=== PATIENT | female | born 1950 | race Caucasian/White ===

== ENCOUNTER → 2017-09-28 09:29 | Outpatient (CLI) | payer MEDICARE, OTHER, SELFPAY ==
--- NOTE | 2017-09-28 09:33 | RAD_ITS ---
STUDY: X-RAY - ESOPHAGUS (BARIUM SWALLOW) WITH FLUOROSCOPY REASON FOR EXAM: Female, 66 years old. Worsening dysphagia. TECHNIQUE: 22 spot view(s) of the esophagus were obtained following swallowing of barium. FLUOROSCOPY TIME (if supplied): (0:32) minutes/seconds COMPARISON: Comparison is made with prior study dated November 27, 2011. FINDINGS: There is no demonstrated esophageal foreign body. Tertiary contractions are seen in the mid and distal portions of the esophagus. Normal gastroesophageal junction, without a demonstrated hiatal hernia. The patient ingested a 12 mm tablet of barium without any difficulty. Normal visualized aortic arch and descending thoracic aorta. Normal visualized pulmonary parenchyma. There are diffuse degenerative changes of the visualized thoracic spine. RAD/Esophagus Only IMPRESSION: Tertiary contraction of the mid and distal esophagus. There is no evidence of gastroesophageal reflux. Electronically Signed: Mitchel Mehta MD at 10:50 EST Tel [phone], Service support ,
== END ==
PROVIDERS: Family Provider Internal Medicine; PCP Internal Medicine; Visit Provider Otolaryngology Otolaryngology/Facial Plastic Surgery
DX: R13.10 Dysphagia, unspecified (principal)
CPT/HCPCS: 74220

== ENCOUNTER → 2017-10-24 08:38 | Outpatient (CLI) | payer MEDICARE, OTHER, SELFPAY ==
--- NOTE | 2017-10-24 08:40 | HPBI_ITS ---
MAMMOGRAPHY - BILATERAL SCREENING REASON FOR EXAM: Female, 66 years old. Routine annual screening examination. PERTINENT HISTORY: Non-contributory. TECHNIQUE: Digital bilateral breast crystal (3D mammographic acquisition) in the CC and MLO projections. 2-D mediolateral oblique (MLO) and craniocaudad (CC) views of both breasts were obtained. CAD: Full Field Digital Mammography with Computer Added Detection was performed. COMPARISON: Comparison is made with prior outside examination dated May 08, 2016. FINDINGS: Breast Composition: The breasts are heterogeneously dense, which may obscure small masses. There are no dominant masses or suspicious calcifications. Stable bilateral benign appearing axillary lymph nodes. No other significant abnormalities are identified. There has been no significant change since the prior study. HPBI/SCREENING MAMM (CAD), BILAT IMPRESSION: Stable bilateral screening mammogram. Yearly follow-up mammogram recommended. (A) ASSESSMENT CATEGORY: BIRADS Category 2: Benign. A letter regarding these results will be sent to the patient by the facility within 30 days. Approximately 10% of breast cancers are not detected by mammography. A normal mammogram should not delay biopsy of a clinically suspicious abnormality. [id number] Electronically Signed: Mitchel Mehta MD at 10:18 EDT Tel [phone], Service support ,
== END ==
PROVIDERS: Family Provider Internal Medicine; PCP Internal Medicine; Visit Provider Obstetrics & Gynecology
DX: Z12.31 Encounter for screening mammogram for malignant neoplasm of breast (principal)
CPT/HCPCS: 77063; 77067

== ENCOUNTER → 2017-11-13 09:23 | Outpatient (CLI) | payer MEDICARE, OTHER, SELFPAY ==
[2017-11-13 12:26] LABS: Hematocrit 33.9 % (37-47); Hemoglobin 10.7 g/dl (12.0-15.0); Mean Corp Hgb Conc 31.6 g/gl (32-36); Mean Corpuscular Hgb 30.7 pg (27.0-32.0); Mean Corpuscular Volume 97.1 fL (81-99); Mean Platelet Vol. 10.2 fl (6.2-12.0); Platelet Count 245 K/mm3 (150-450); RBC Distribution Width CV 13.5 % (11.6-14.6); RBC Distribution Width SD 46.2 fl (35.1-43.9); Red Blood Count 3.49 M/mm3 (4.2-5.4); White Blood Count 5.8 K/mm3 (4.4-11.0)
[2017-11-13 12:40] LABS: Albumin, Serum 3.8 g/dL (3.2-5.0); BUN 44 mg/dL (7-18); BUN/Creat Ratio 22.1 RATIO (10-20); Calcium,Total 9.2 mg/dL (8.5-10.1); Chloride 109 mmol/L (98-107); Creatinine, Serum 1.99 mg/dL (0.55-1.02); EST Glomerular Filtration Rate 27 mL/min (>60); Est Glom Filt Rate - Afr Amer 32 mL/min (>60); Glucose 156 mg/dL (74-106); Phosphorus 3.8 mg/dL (2.5-4.9); Potassium 4.9 mmol/L (3.5-5.1); Sodium Level 141 mmol/L (136-145)
[2017-11-13 12:46] LABS: Microalbumin,Random Urine 5.3 mg/L (NO RANGE EST.)
[2017-11-13 12:47] LABS: Scan Indicated on CBC? Y/N NO
== END ==
PROVIDERS: Family Provider Internal Medicine; PCP Internal Medicine
DX: N18.3 Chronic kidney disease, stage 3 (moderate) (principal)
CPT/HCPCS: 36415; 80069; 82043; 85027

== ENCOUNTER → 2018-06-13 16:31 | Outpatient (CLI) | payer MEDICARE, OTHER, SELFPAY | PROVIDERS: Family Provider Internal Medicine; PCP Internal Medicine; Referring Provider Urology; Visit Provider Urology | DX: R35.0 Frequency of micturition (principal) | CPT/HCPCS: 87077; 87086; 87088; 87186 ==

== ENCOUNTER → 2018-07-01 09:06 | Outpatient (CLI) | payer MEDICARE, OTHER, SELFPAY ==
[2017-09-26 14:07] VITALS: BMI 43.5
[2018-07-01 12:25] LABS: Absolute Lymphocyte Count 2.03 X10^3/ul (0.83-4.51); Absolute Neutrophil Count 3.9 X10^3/uL (2.0-7.7); Basophil# 0.06 X10^3/uL; Basophil% 0.9 % (0-1); Eosinophil# 0.42 X10^3/uL; Hematocrit 33.1 % (37-47); Hemoglobin 10.4 g/dl (12.0-15.0); Lymphocyte # 2.03 X10^3/ul (4.0); Mean Corp Hgb Conc 31.4 g/gl (32-36); Mean Corpuscular Hgb 29.8 pg (27.0-32.0); Mean Corpuscular Volume 94.8 fL (81-99); Mean Platelet Vol. 10.1 fl (6.2-12.0); Monocyte# 0.55 X10^3/uL; Monocyte% 7.9 % (0-10); Neutrophil # 3.92 X10^3/uL (2.7-7.7); Neutrophil % 56.1 % (47-70); POSITIVE COUNT NO; POSITIVE DIFFERENTIAL NO; POSITIVE MORPHOLOGY NO; Platelet Count 278 K/mm3 (150-450); RBC Distribution Width CV 13.2 % (11.6-14.6); RBC Distribution Width SD 45.5 fl (35.1-43.9); Red Blood Count 3.49 M/mm3 (4.2-5.4)
[2018-07-01 12:29] LABS: Erythrocyte Sedimentation Rate 57 mm/hr (0-30)
[2018-07-01 12:43] LABS: ALB/GLOB Ratio 0.8 RATIO (0.9-2.4); AST(SGOT) 19 U/L (15-37); Alanine Aminotransfer ALT/SGPT 27 U/L (13-56); Albumin, Serum 3.3 g/dL (3.2-5.0); Alkaline Phosphatase 113 U/L (45-117); Anion Gap 13 (5-15); BUN 43 mg/dL (7-18); BUN/Creat Ratio 21.4 RATIO (10-20); Bilirubin, Direct 0.14 mg/dL (0.00-0.30); CRP < 2.90 mg/L (0.0-3.0); Chloride 110 mmol/L (98-107); Cholesterol 154 mg/dL (200); Creatinine, Serum 2.01 mg/dL (0.55-1.02); EST Glomerular Filtration Rate 26 mL/min (>60); Est Glom Filt Rate - Afr Amer 32 mL/min (>60); Glucose 121 mg/dL (74-106); High Density Lipoprotein 43 mg/dL; Potassium 4.4 mmol/L (3.5-5.1); Protein, Total 7.3 g/dL (6.4-8.2); Rheumatoid Factor < 10.0 IU/mL (<15); Sodium Level 143 mmol/L (136-145); Triglycerides 114 mg/dL; Very Low Density Lipoprotein 23 mg/dL (5-40)
[2018-07-03 09:43] LABS: CCP IgG Antibodies 7 units (0-19)
== END ==
PROVIDERS: Family Provider Family Medicine; PCP Family Medicine; Referring Provider Internal Medicine Rheumatology; Visit Provider Internal Medicine Rheumatology
DX: I12.9 Hypertensive chronic kidney disease with stage 1 through stage 4 chronic kidney disease, or unspecified chronic kidney disease (principal); E11.22 Type 2 diabetes mellitus with diabetic chronic kidney disease; N18.3 Chronic kidney disease, stage 3 (moderate); E78.5 Hyperlipidemia, unspecified; M19.041 Primary osteoarthritis, right hand; M19.042 Primary osteoarthritis, left hand
CPT/HCPCS: 36415; 80053; 80061; 82248; 85025; 85652; 86140; 86200; 86431

== ENCOUNTER → 2018-07-10 07:38 | Outpatient (CLI) | payer MEDICARE, OTHER, SELFPAY ==
[2018-07-10 10:19] LABS: Color, Urine Yellow (Yellow); Glucose, Dipstick Normal (Normal); Ketone-Dipstick Negative (Negative); Leukocyte Esterase-Dipstick 25 /ul (Negative); Nitrite-Dipstick Negative (Negative); Occult Blood-Urine Negative /ul (Negative); Protein-Dipstick Negative (Negative); Urine Bilirubin Dipstick Negative (Negative); Urine Clarity Sl. Cloudy (Clear); Urine Urobilinogen Normal (Normal)
[2018-07-10 10:22] LABS: Specific Gravity, Urine 1.015 (1.002-1.030)
== END ==
PROVIDERS: Family Provider Family Medicine; PCP Family Medicine; Referring Provider Urology; Visit Provider Urology
DX: N39.41 Urge incontinence (principal); R35.0 Frequency of micturition
CPT/HCPCS: 81002; 87086; 87088; 87186

== ENCOUNTER → 2018-07-19 14:53 | Outpatient (CLI) | payer MEDICARE, OTHER, SELFPAY ==
[2017-09-26 14:07] VITALS: BMI 43.5
== END ==
PROVIDERS: Family Provider Family Medicine; PCP Family Medicine; Referring Provider Urology; Visit Provider Urology
DX: R35.0 Frequency of micturition (principal)
CPT/HCPCS: 87086; 87088

== ENCOUNTER → 2018-08-01 08:03 | Outpatient (CLI) | payer MEDICARE, OTHER, SELFPAY ==
[2017-09-26 14:07] VITALS: BMI 43.5
--- NOTE | 2018-08-01 08:07 | US_ITS ---
STUDY: RENAL ULTRASOUND - COMPLETE REASON FOR EXAM: Female, 67 years old. Recurrent UTI. TECHNIQUE: Ultrasound evaluation of the kidneys was performed with real-time and static peralta-scale imaging. COMPARISON: May 30, 2016 CT FINDINGS: RIGHT KIDNEY: Normal location of the right kidney, which is normal in size. The right kidney measures 10.1 cm in length. There is a normal cortex of the right kidney. There is no right renal mass or cyst. There are no right renal calculi. There is no right hydronephrosis. DISTAL RIGHT URETER: There is a visualized right ureteral jet. LEFT KIDNEY: Normal location of the left kidney, which is normal in size. The left kidney measures 9.4 cm in length. There is a normal cortex of the left kidney. There is no left renal mass or cyst. There are no left renal calculi. There is no left hydronephrosis. DISTAL LEFT URETER: There is a visualized left ureteral jet. I.V.C.: The IVC is patent. BLADDER: The urinary bladder is incompletely distended and has a volume of 77.04 ml. The empty urinary bladder has a volume of ml. There is a normal wall thickness of the distended urinary bladder. There is no demonstrated mass within the urinary bladder. There are no demonstrated bladder calculi. US/Kidney and Bladder IMPRESSION: Within normal limits ultrasound of the kidneys and urinary bladder. Electronically Signed: Negra Castañeda MD at 20:55 EST Tel , Service support ,
== END ==
PROVIDERS: Family Provider Family Medicine; PCP Family Medicine; Referring Provider Urology; Visit Provider Urology
DX: N39.0 Urinary tract infection, site not specified (principal)
CPT/HCPCS: 76770

== ENCOUNTER → 2018-08-13 09:23 | Outpatient (CLI) | payer MEDICARE, OTHER, SELFPAY ==
[2017-09-26 14:07] VITALS: BMI 43.5
== END ==
PROVIDERS: Family Provider Family Medicine; PCP Family Medicine; Referring Provider Urology; Visit Provider Urology
DX: R30.0 Dysuria (principal)
CPT/HCPCS: 87077; 87086; 87088; 87186

== ENCOUNTER → 2018-08-30 09:16 | Outpatient (CLI) | payer MEDICARE, OTHER, SELFPAY ==
[2017-09-26 14:07] VITALS: BMI 43.5
== END ==
PROVIDERS: Family Provider Family Medicine; PCP Family Medicine; Referring Provider Urology; Visit Provider Urology
DX: R39.15 Urgency of urination (principal); R35.0 Frequency of micturition; R30.0 Dysuria
CPT/HCPCS: 87086; 87088

== ENCOUNTER → 2018-11-28 08:36 | Outpatient (CLI) | payer MEDICARE, OTHER, SELFPAY ==
--- NOTE | 2018-11-28 08:39 | BI_ITS ---
MAMMOGRAPHY - BILATERAL SCREENING 3-D TOMOSYNTHESIS REASON FOR EXAM: Female, 67 years old. Bilateral Screening 3-D tomosynthesis PERTINENT HISTORY: No significant family history. TECHNIQUE: 2-D mammograms and 3-D Tomosynthesis of the breast (s) were performed. CAD was performed. COMPARISON: 10/24/2017 FINDINGS: The breast composition is heterogeneously dense that can obscure small breast masses. Scattered benign calcifications are seen. No dense spiculated masses or suspicious microcalcifications are identified. No architectural distortion is identified. There is no skin thickening or retraction. There has been no significant change since the prior study. BI/SCREEN MAMM (CAD) W/GUY BILAT IMPRESSION: No mammographic signs of malignancy. Routine yearly mammograms recommended. ASSESSMENT CATEGORY: BIRADS Category 1: Negative. A letter regarding these results will be sent to the patient by the facility within 30 days. FOLLOW UP RECOMMENDATION: Yearly follow up mammogram recommended. (A) Approximately 10% of breast cancers are not detected by mammography. A normal mammogram should not delay biopsy of a clinically suspicious abnormality. Electronically Signed: Noah Hooker MD at 9:50 EDT , Service support ,
== END ==
PROVIDERS: Family Provider Family Medicine; PCP Family Medicine; Referring Provider Nurse Practitioner Women's Health; Visit Provider Nurse Practitioner Women's Health
DX: Z12.31 Encounter for screening mammogram for malignant neoplasm of breast (principal)
CPT/HCPCS: 77063; 77067

== ENCOUNTER → 2018-12-16 14:33 | Outpatient (CLI) | payer MEDICARE, OTHER, SELFPAY ==
[2017-09-26 14:07] VITALS: BMI 43.5
[2018-12-16 17:51] LABS: Hemoglobin 11.2 g/dl (12.0-15.0); Mean Corpuscular Hgb 29.9 pg (27.0-32.0); Mean Corpuscular Volume 93.6 fL (81-99); Mean Platelet Vol. 10.7 fl (6.2-12.0); Platelet Count 253 K/mm3 (150-450); RBC Distribution Width CV 13.4 % (11.6-14.6); RBC Distribution Width SD 44.4 fl (35.1-43.9); Red Blood Count 3.74 M/mm3 (4.2-5.4)
[2018-12-16 17:55] LABS: Scan Indicated on CBC? Y/N NO
[2018-12-16 18:03] LABS: Albumin, Serum 3.6 g/dL (3.2-5.0); BUN 47 mg/dL (7-18); BUN/Creat Ratio 21.6 RATIO (10-20); Chloride 110 mmol/L (98-107); Creatinine, Serum 2.18 mg/dL (0.55-1.02); EST Glomerular Filtration Rate 24 mL/min (>60); Est Glom Filt Rate - Afr Amer 29 mL/min (>60); Glucose 171 mg/dL (74-106); Phosphorus 3.8 mg/dL (2.5-4.9); Potassium 4.9 mmol/L (3.5-5.1); Sodium Level 139 mmol/L (136-145)
[2018-12-16 18:11] LABS: PTHIN 84.7 pg/mL (18.4-80.1); Vitamin D,25 Hydroxy 19.2 ng/mL (29.95-100.01)
== END ==
PROVIDERS: Family Provider Family Medicine; PCP Family Medicine
DX: N18.3 Chronic kidney disease, stage 3 (moderate) (principal)
CPT/HCPCS: 36415; 80069; 82306; 83970; 85027

== ENCOUNTER → 2019-03-03 09:31 | Outpatient (CLI) | payer MEDICARE, OTHER, SELFPAY ==
[2019-01-13 08:45] VITALS: BMI 43.5
[2019-03-03 10:44] LABS: Hematocrit 32.9 % (37-47); Hemoglobin 10.3 g/dL (12.0-15.0); Mean Corp Hgb Conc 31.3 g/dL (32-36); Mean Corpuscular Hgb 30.2 pg (27.0-32.0); Mean Corpuscular Volume 96.5 fL (81-99); Mean Platelet Vol. 10.7 fl (6.2-12.0); Platelet Count 231 K/mm3 (150-450); RBC Distribution Width CV 13.2 % (11.6-14.6); RBC Distribution Width SD 47.2 fl (35.1-43.9); Red Blood Count 3.41 M/mm3 (4.2-5.4); White Blood Count 6.2 K/mm3 (4.4-11.0)
[2019-03-03 11:13] LABS: AST(SGOT) 12 U/L (15-37); Alanine Aminotransfer ALT/SGPT 16 U/L (13-56); Albumin, Serum 3.7 g/dL (3.2-5.0); Alkaline Phosphatase 92 U/L (45-117); Anion Gap 8 (5-15); BUN 46 mg/dL (7-18); BUN/Creat Ratio 19.4 RATIO (10-20); Calcium,Total 9.8 mg/dL (8.5-10.1); Chloride 110 mmol/L (98-107); Cholesterol 151 mg/dL (200); Creatinine, Serum 2.37 mg/dL (0.55-1.02); EST Glomerular Filtration Rate 22 mL/min (>60); Est Glom Filt Rate - Afr Amer 26 mL/min (>60); Globulin 3.7 g/dL (2.2-4.2); Glucose 190 mg/dL (74-106); High Density Lipoprotein 49 mg/dL; Magnesium 1.7 mg/dL (1.6-2.6); Phosphorus 3.6 mg/dL (2.5-4.9); Potassium 3.9 mmol/L (3.5-5.1); Protein, Total 7.4 g/dL (6.4-8.2); Sodium Level 139 mmol/L (136-145); Triglycerides 161 mg/dL; Very Low Density Lipoprotein 32 mg/dL (5-40)
[2019-03-03 11:16] LABS: Protein, Urine (Random) 108.3 mg/dL (<11.9); Protein:Creat Ratio 235 mg/g CRE (0-200)
[2019-03-03 19:34] LABS: PTHIN 54.5 pg/mL (18.4-80.1)
[2019-03-03 22:04] LABS: Vitamin D,25 Hydroxy 29.4 ng/mL (29.95-100.01)
== END ==
PROVIDERS: Family Provider Family Medicine; PCP Family Medicine
DX: E11.22 Type 2 diabetes mellitus with diabetic chronic kidney disease (principal); N18.3 Chronic kidney disease, stage 3 (moderate); E78.5 Hyperlipidemia, unspecified; N39.0 Urinary tract infection, site not specified
CPT/HCPCS: 80053; 80061; 82306; 82570; 83735; 83970; 84100; 84156; 85027; 87077; 87086; 87088; 87186

== ENCOUNTER → 2019-03-21 09:25 | Outpatient (CLI) | payer MEDICARE, OTHER, SELFPAY ==
[2019-01-13 08:45] VITALS: BMI 43.5
== END ==
PROVIDERS: Family Provider Family Medicine; PCP Family Medicine; Referring Provider Internal Medicine Nephrology; Visit Provider Internal Medicine Nephrology
DX: N39.0 Urinary tract infection, site not specified (principal)
CPT/HCPCS: 87086; 87088

== ENCOUNTER 2019-04-03 09:25 | Outpatient (RCR) | payer MEDICARE, OTHER, SELFPAY ==
[2019-01-13 08:45] VITALS: BMI 43.5
[2019-04-03 09:40] LABS: Bacteria 0 SEEN /hpf (None Seen); Mucous, Urine 0 SEEN /hpf (<or=2+); Red Blood Cells-Urine 0 SEEN /hpf (0-5); White Blood Cells 0 SEEN /hpf (0-5)
[2019-04-03 12:10] LABS: Color, Urine Yellow (Yellow); Glucose, Dipstick Normal (Normal); Ketone-Dipstick Negative (Negative); Leukocyte Esterase-Dipstick Negative /ul (Negative); Nitrite-Dipstick Negative (Negative); Occult Blood-Urine Negative /ul (Negative); Protein-Dipstick Negative (Negative); Specific Gravity, Urine 1.015 (1.002-1.030); Urine Bilirubin Dipstick Negative (Negative); Urine Clarity Clear (Clear); Urine Urobilinogen Normal (Normal)
[2019-04-03 12:22] LABS: Squamous Epithelial Cells - UA 0-5 SEEN /hpf (5-10)
== END 2019-04-03 10:25 | disposition home or self-care (01) ==
LOC: MTLAB 09:25
PROVIDERS: Family Provider Family Medicine; PCP Family Medicine
DX: N39.0 Urinary tract infection, site not specified (principal)
CPT/HCPCS: 81001; 87086; 87088

== ENCOUNTER 2019-05-07 09:07 | Outpatient (RCR) | payer MEDICARE, OTHER, SELFPAY ==
[2019-01-13 08:45] VITALS: BMI 43.5
[2019-05-07 09:19] LABS: Bacteria 0 SEEN /hpf (None Seen); Mucous, Urine 0 SEEN /hpf (<or=2+); Red Blood Cells-Urine 0 SEEN /hpf (0-5); White Blood Cells 0 SEEN /hpf (0-5)
[2019-05-07 10:16] LABS: Color, Urine Yellow (Yellow); Glucose, Dipstick Normal (Normal); Ketone-Dipstick Negative (Negative); Leukocyte Esterase-Dipstick Negative /ul (Negative); Nitrite-Dipstick Negative (Negative); Occult Blood-Urine Negative /ul (Negative); Protein-Dipstick Negative (Negative); Specific Gravity, Urine 1.015 (1.002-1.030); Urine Bilirubin Dipstick Negative (Negative); Urine Clarity Clear (Clear); Urine Urobilinogen Normal (Normal)
[2019-05-07 10:23] LABS: Squamous Epithelial Cells - UA 0-5 SEEN /hpf (5-10)
== END 2019-05-07 18:00 | disposition home or self-care (01) ==
LOC: MTLAB 09:07
PROVIDERS: Family Provider Family Medicine; PCP Family Medicine
DX: N39.0 Urinary tract infection, site not specified (principal)
CPT/HCPCS: 81001; 87086; 87088

== ENCOUNTER 2019-10-03 09:14 | Outpatient (RCR) | payer MEDICARE, OTHER, SELFPAY ==
[2019-01-13 08:45] VITALS: BMI 43.5
[2019-10-03 09:26] LABS: Mucous, Urine 0 SEEN /hpf (<or=2+); Red Blood Cells-Urine 0 SEEN /hpf (0-5); White Blood Cells 0 SEEN /hpf (0-5)
[2019-10-03 10:17] LABS: Color, Urine Yellow (Yellow); Glucose, Dipstick Normal (Normal); Ketone-Dipstick Negative (Negative); Leukocyte Esterase-Dipstick Negative /ul (Negative); Nitrite-Dipstick Negative (Negative); Occult Blood-Urine Negative /ul (Negative); Protein-Dipstick Negative (Negative); Urine Bilirubin Dipstick Negative (Negative); Urine Clarity Clear (Clear); Urine Urobilinogen Normal (Normal); Urine pH 6.5 (5.0 - 8.0)
[2019-10-03 10:23] LABS: Bacteria RARE /hpf (None Seen); Squamous Epithelial Cells - UA 0-5 SEEN /hpf (5-10)
== END 2019-10-03 18:00 | disposition home or self-care (01) ==
LOC: MTLAB 09:14
PROVIDERS: Family Provider Family Medicine; PCP Family Medicine
DX: N39.0 Urinary tract infection, site not specified (principal)
CPT/HCPCS: 81001; 87086; 87088

== ENCOUNTER → 2020-03-12 12:01 | Outpatient (CLI) | payer MEDICARE, OTHER, SELFPAY ==
[2019-01-13 08:45] VITALS: BMI 43.5
[2020-03-12 15:13] LABS: Erythrocyte Sedimentation Rate 20 mm/hr (0-30)
[2020-03-12 15:14] LABS: Absolute Lymphocyte Count 1.67 X10^3/uL (0.83-4.51); Absolute Neutrophil Count 3.4 X10^3/uL (2.0-7.7); Basophil# 0.05 X10^3/uL; Basophil% 0.9 % (0-1); Eosinophil# 0.17 X10^3/uL; Eosinophils% 2.9 % (0-5); Hematocrit 37.8 % (37-47); Hemoglobin 12.2 g/dL (12.0-15.0); Lymphocyte # 1.67 X10^3/ul (4.0); Lymphocyte % 28.7 % (19-41); Mean Corp Hgb Conc 32.3 g/dL (32-36); Mean Corpuscular Hgb 30.7 pg (27.0-32.0); Mean Corpuscular Volume 95.2 fL (81-99); Mean Platelet Vol. 11.1 fl (6.2-12.0); Monocyte# 0.51 X10^3/uL; Monocyte% 8.8 % (0-10); NRBC Flagged by Analyzer 0 % (0-5); Neutrophil # 3.42 X10^3/uL (2.7-7.7); Neutrophil % 58.7 % (47-70); Platelet Count 264 K/mm3 (150-450); RBC Distribution Width CV 12.7 % (11.6-14.6); RBC Distribution Width SD 44.4 fl (35.1-43.9); Red Blood Count 3.97 M/mm3 (4.2-5.4); White Blood Count 5.8 K/mm3 (4.4-11.0)
[2020-03-12 15:25] LABS: CRP < 2.90 mg/L (0.0-3.0)
== END ==
PROVIDERS: PCP Family Medicine; Referring Provider Ophthalmology; Visit Provider Ophthalmology
DX: M31.6 Other giant cell arteritis (principal)
CPT/HCPCS: 36415; 85025; 85652; 86140

== ENCOUNTER → 2020-03-25 08:41 | Outpatient (CLI) | payer MEDICARE, OTHER, SELFPAY ==
[2019-01-13 08:45] VITALS: BMI 43.5
--- NOTE | 2020-03-25 08:42 | BI_ITS ---
MAMMOGRAPHY - BILATERAL SCREENING 3-D TOMOSYNTHESIS REASON FOR EXAM: Female, 69 years old. Routine screening PERTINENT HISTORY: BILAT SCREENING - NO FAM HX - NO PREV ANCELMO G''S - PT HAS LOST 30#. TECHNIQUE: 2-D mammograms and 3-D Tomosynthesis of the breast (s) were performed. CAD was performed. COMPARISON: 11/28/2018 FINDINGS: The breast composition is heterogeneously dense that can obscure small breast masses. Stable scattered benign punctate calcifications are seen. No dense spiculated masses or suspicious microcalcifications are identified. No architectural distortion is identified. There is no skin thickening or retraction. There has been no significant change since the prior study. BI/SCREEN MAMM (CAD) W/GUY BILAT IMPRESSION: No mammographic signs of malignancy. Routine yearly mammograms recommended. ASSESSMENT CATEGORY: BIRADS Category 2: Benign. A letter regarding these results will be sent to the patient by the facility within 30 days. FOLLOW UP RECOMMENDATION: Yearly follow up mammogram recommended. (A) Approximately 10% of breast cancers are not detected by mammography. A normal mammogram should not delay biopsy of a clinically suspicious abnormality. Electronically Signed: Noah Hooker MD at 12:58 EDT , Service support ,
== END ==
PROVIDERS: PCP Family Medicine; Referring Provider Obstetrics & Gynecology; Visit Provider Obstetrics & Gynecology
DX: Z12.31 Encounter for screening mammogram for malignant neoplasm of breast (principal)
CPT/HCPCS: 77063; 77067

== ENCOUNTER → 2021-04-26 08:34 | Outpatient (CLI) | payer MEDICARE, OTHER, SELFPAY ==
--- NOTE | 2021-04-26 08:04 | CT_ITS ---
STUDY: CT ABDOMEN AND PELVIS WITHOUT CONTRAST REASON FOR EXAM: Female, 70 years old. Umbilical hernia suspected RADIATION DOSAGE (If Supplied By Facility): CTDIvol = ( 20.81 ) mGy, DLP = ( 1003.53 ) mGycm TECHNIQUE: Transaxial images were obtained from the dome of the diaphragm to the symphysis pubis without oral contrast, and without intravenous contrast. Sagittal and coronal images were reconstructed. Individualized dose optimization techniques were used for this CT. COMPARISON: None. FINDINGS: Minimal atelectasis at the left lung base. Coronary artery calcification. Normal liver. There are multiple gallstones. Normal spleen. Normal pancreas. Normal bilateral adrenal glands. Normal right kidney. Normal left kidney. Normal visualized stomach. Normal small intestine. There are scattered colonic diverticula consistent with diverticulosis. The appendix is visualized and appears normal. There is scattered atherosclerotic calcification of the abdominal aorta, without a demonstrated aneurysm. Normal inferior vena cava. Normal retroperitoneum. Normal urinary bladder. Calcified fibroid uterus. There is a small umbilical hernia containing fat. The neck of the hernia measures 1.8 cm. Normal osseous structures. CT/Abdomen/Pel W ORAL Cont Only IMPRESSION: Small umbilical hernia containing fat. The neck of the hernia measures 1.8 cm. Electronically Signed: Mitchel Mehta MD at 10:28 EDT , Service support ,
--- NOTE | 2021-04-26 08:38 | BI_ITS ---
MAMMOGRAPHY - BILATERAL SCREENING REASON FOR EXAM: Female, 70 years old. Routine annual screening examination. PERTINENT HISTORY: Grandmother with breast cancer. TECHNIQUE: Digital bilateral breast guy (3D mammographic acquisition) in the CC and MLO projections. 2-D mediolateral oblique (MLO) and craniocaudad (CC) views of both breasts were obtained. CAD: Full Field Digital Mammography with Computer Added Detection was performed. COMPARISON: Comparison is made with prior study 03/25/2020 and 11/28/2018. FINDINGS: Breast Composition: The breasts are heterogeneously dense, which may obscure small masses. There are no dominant masses or suspicious calcifications. Stable benign-appearing bilateral axillary lymph nodes. Stable secretory calcifications in the breast more prominent on the left side. No other significant abnormalities are identified. There has been no significant change since the prior study. BI/SCRN MAMM (CAD)W/GUY BILAT IMPRESSION: Stable bilateral screening mammogram. Yearly follow-up mammogram recommended. (A) ASSESSMENT CATEGORY: BIRADS Category 2: Benign. A letter regarding these results will be sent to the patient by the facility within 30 days. Approximately 10% of breast cancers are not detected by mammography. A normal mammogram should not delay biopsy of a clinically suspicious abnormality. [id number] Electronically Signed: Mitchel Mehta MD at 9:50 EDT , Service support ,
== END ==
PROVIDERS: PCP Family Medicine; Visit Provider Obstetrics & Gynecology
DX: K42.9 Umbilical hernia without obstruction or gangrene (principal); Z12.31 Encounter for screening mammogram for malignant neoplasm of breast
CPT/HCPCS: 74176; 77063; 77067

== ENCOUNTER → 2021-06-14 08:35 | Outpatient (CLI) | payer MEDICARE, OTHER, SELFPAY ==
--- NOTE | 2021-06-14 09:45 | RAD_ITS ---
STUDY: X-RAY - ESOPHAGUS (BARIUM SWALLOW) WITH FLUOROSCOPY REASON FOR EXAM: Female, 70 years old. DYSPHAGIA TECHNIQUE: 20 view(s) of the esophagus were obtained following swallowing of barium. FLUOROSCOPY TIME (if supplied): (38) minutes/seconds COMPARISON: None. FINDINGS: There is no demonstrated esophageal foreign body. There is no demonstrated stricture or mucosal abnormality. There is narrowing of the distal esophagus at the level of the gastroesophageal junction. The patient ingested a 12 mm tablet of barium. The tablet is trapped at the gastroesophageal junction. There is atherosclerotic calcification of the aortic arch with tortuosity of the descending aorta. Normal visualized pulmonary parenchyma. There are diffuse degenerative changes of the visualized thoracic spine. RAD/Esophagus Dual Contrast IMPRESSION: Narrowing at the level of the gastroesophageal junction with trapping of the 12 mm tablet of barium. Electronically Signed: Mitchel Mehta MD at 11:32 EST , Service support ,
== END ==
PROVIDERS: PCP Family Medicine; Referring Provider Internal Medicine Gastroenterology; Visit Provider Internal Medicine Gastroenterology
DX: R13.10 Dysphagia, unspecified (principal)
CPT/HCPCS: 74221

== ENCOUNTER 2021-09-28 09:34 | Outpatient (CLI) | payer MEDICARE, OTHER, SELFPAY ==
[2021-09-28 10:20] LABS: Hematocrit 29.7 % (37-47); Hemoglobin 9.6 g/dL (12.0-15.0); Mean Corp Hgb Conc 32.3 g/dL (32-36); Mean Corpuscular Hgb 30.4 pg (27.0-32.0); Mean Platelet Vol. 9.8 fl (6.2-12.0); Platelet Count 249 K/mm3 (150-450); RBC Distribution Width CV 13.4 % (11.6-14.6); RBC Distribution Width SD 46.4 fl (35.1-43.9); Red Blood Count 3.16 M/mm3 (4.2-5.4); White Blood Count 6.9 K/mm3 (4.4-11.0)
== END 2021-09-28 23:59 | disposition home or self-care (01) ==
LOC: MTLAB 09:37
PROVIDERS: PCP Family Medicine; Referring Provider Internal Medicine Pulmonary Disease; Visit Provider Internal Medicine Pulmonary Disease
DX: D50.8 Other iron deficiency anemias (principal)
CPT/HCPCS: 36415; 85027

== ENCOUNTER 2021-09-28 23:39 | Emergency (ER) | payer MEDICARE, OTHER, SELFPAY ==
[2021-09-28 23:40] VITALS: BP 160/75; PULSE 92; RESP 15; TEMP 36.5; O2SAT 96; BMI 36.8
--- NOTE | 2021-09-29 00:17 | EDS_ITS ---
HPI HPI - GI History of Present Illness Chief Complaint: Complaint Informant: patient Abdominal Pain/Flank Pain Onset: Today Timing: Continuous Quality: Aching Location: Epigastric Current Severity: Mild Maximum Severity: Mild Worsened by: Nothing Relieved by: Nothing Nausea/Vomiting/Emesis GI Symptom: Negative for Nausea and Vomiting Onset: Today Quality: Negative for Nonbilious Diarrhea/Melena/Hematochezia GI Symptom: Negative for Diarrhea, Melena and Hematochezia Associated Symptoms Associated Symptoms: Positive for Hematuria; Negative for Dysuria and Frequency Narrative Narrative: 70-year-old female prior appendectomy. States that she noticed hematuria today. Denies any dysuria. Denies any fever. States she also has epigastric abdominal pain which she has had before in the past. Has a known history of gallstones but has never had a cholecystectomy. She denies vomiting. She denies diarrhea or melena. She denies any fever. Prior similar symptoms: Yes Recent Illness/Hospitalization: No PFSH PFS Medical History Arthritis Asthma Diabetes type 2, controlled GERD (gastroesophageal reflux disease) History of melanoma Hyperlipemia Hypertension IBS (irritable bowel syndrome) Sleep apnea Home Medications GlipiZIDE PO BID 08/21/17 [History Last Taken Unknown] indapamide 2.5 mg tablet 2.5 mg PO QAM #90 tab 08/21/17 [Rx Last Taken Unknown] Oxybutynin 1 tab PO TID #90 tab 10/02/17 [Rx Last Taken Unknown] lactobacillus combination no.8 3 billion cell capsule 3,000 mmu cells PO DAILY 01/13/19 [History Last Taken Unknown] lisinopril 10 mg tablet 5 mg PO QDAY tab 01/13/19 [History Last Taken Unknown] apremilast 30 mg tablet 30 mg PO QAM AND QPM 04/04/21 [History Last Taken Unknown] atorvastatin 20 mg tablet 20 mg PO DAILY 04/04/21 [History Last Taken Unknown] montelukast 10 mg tablet 10 mg PO DAILY 04/04/21 [History Last Taken Unknown] omeprazole 20 mg capsule,delayed release 20 mg PO DAILY 04/04/21 [History Last Taken Unknown] pioglitazone 15 mg tablet 15 mg PO DAILY 04/04/21 [History Last Taken Unknown] cephalexin 500 mg PO TID 10 Days #30 cap 09/29/21 [Rx Last Taken Unknown] Allergy/AdvReac Type Severity Reaction Status Date / Time adhesive Allergy Rash Verified 09/28/21 23:44 amoxicillin [From Augmentin] Allergy Unknown Verified 09/28/21 23:44 clavulanic acid Allergy Unknown Verified 09/28/21 23:44 [From Augmentin] Penicillins [PCN] Allergy Other Verified 09/28/21 23:44 Sulfa (Sulfonamide Allergy Hives Verified 09/28/21 23:44 Antibiotics) STEROID SHOTS Allergy Other Uncoded 04/04/21 13:20 Family History Mother Diabetes Heart disease Hypertension Father Heart disease Cancer skin Grandfather Myocardial infarction 60s or 70s CVA (cerebral vascular accident) Surgical History H/O arthroscopic knee surgery hand and elbow surgery History of appendectomy History of carpal tunnel release History of cataract Status post left foot surgery Social History Smoking Status: Never smoker alcohol intake: never substance use type: does not use caffeine: Yes what type of physical activity do you participate in: walking frequency: 1-2 times per week seatbelt use: always do you feel safe at home: Yes additional social history: Employed [employer] ROS ROS ED ROS Narrative Abdominal pain epigastric. Mild hematuria. Review of Systems ROS Unobtainable: Denies due to encephalopathy Constitutional Constitutional ED: Denies fever(s) ENT ENT ED: Denies ear pain Cardiovascular Cardiovascular: Denies chest pain or palpitations Respiratory/Chest Respiratory/Chest: Denies cough, dyspnea or sputum Gastrointestinal Gastrointestinal: Reports abdominal pain; Denies constipation, diarrhea, melena, nausea or vomiting Genitourinary Genitourinary ED: Reports hematuria; Denies dysuria Musculoskeletal Musculoskeletal: Denies myalgias Integumentary Denies rash Neurologic Neurologic: Denies headache(s) Psychiatric Psychiatric: Denies depression Endocrine Endocrinology: Denies polyuria Hematologic/Lymphatic Hematologic/Lymphatic: Denies easy bruising Allergic/Immunologic Allergic/Immunologic ED: Denies urticaria EXAM Physical Exam Narrative Exam Narrative: 70-year-old female no acute distress. Vital signs are stable and afebrile. H EENT exam unremarkable. Neck nontender. Lungs clear to auscultation bilaterally. Heart regular rhythm rate about 90 no murmur. Abdomen soft nondistended normal bowel sounds no peritoneal signs. Mild epigastric tenderness. No rebound, guarding rigidity. No pulsatile mass. No right upper or right lower quadrant tenderness. No hernia. No obstruction. Moving all 4 extremities. Nontender no edema. Neurologically she is awake alert with no focal motor deficits. Const Vital Signs: 09/28/21 23:40 09/29/21 01:48 Temperature 97.7 F L 97.7 F L Temperature Source Temporal Oral Pulse Rate 92 86 Respiratory Rate 15 16 Blood Pressure 160/75 H 144/68 H Blood Pressure Mean 103 93 Pulse Ox 96 99 Oxygen Delivery Method Room Air Room Air Positive well nourished, well developed and obese; Negative for cachectic, contractures or unkempt General Appearance ED: well developed and NAD; Negative for unkempt, cachectic, contractures or pallor Nutritional Appearance: obese; Negative for cachectic HEENT Reports moist mucous membranes; Denies dry mucous membranes normocephalic and atraumatic; Negative for trauma or tenderness Mouth ED: No dry mucous membranes Mouth: No dry mucous membranes Eyes PERRL and EOMs intact bilaterally Neck no lymphadenopathy, supple and no JVD General: Negative for tenderness Resp normal respiratory effort and clear to auscultation bilaterally Auscultation: Negative for rales, rhonchi or wheezes Cardio regular rate, regular rhythm, S1 normal heart sound, S2 normal heart sound and no murmurs GI non-distended and no masses; Negative for non-tender Inspection: Negative for abdominal distention Auscultation: normoactive bowel sounds; Negative for hypoactive bowel sounds Palpation: soft and tender; Negative for guarding, rigid or rebound tenderness present Back/Spine no CVA tenderness General Back: Negative for CVA tenderness Cervical Spine: Negative for cervical spine tenderness Thoracic Spine / Upper Back: Negative for thoracic spinal tenderness Extremity full ROM General Extremety ED: Negative for edema or tenderness General Extremity: Negative for edema Neuro CN's II-XII intact bilaterally and moves all extremities Sensorium / Orientation: alert, oriented to person, oriented to place and oriented to time; Negative for orientation impaired, confused, lethargic or stuporous Motor Exam: strength 5/5 throughout Psych mental status grossly normal and thought process normal Appearance: Negative for unkempt Attitude: No agitated Mood & Affect: anxious; Negative for depressed or tearful Skin no wounds General Skin Exam: Negative for jaundice or pallor Lesions: no lesions Rashes: no rashes and No rashes noted MDM MDM MDM Narrative Medical decision making narrative: 70-year-old with small amount of blood in her urine. And epigastric abdominal pain. Screening labs will be obtained. She h ad blood work earlier today showed a mild anemia with a hemoglobin of 9.6 her hemoglobin normally runs between 10 and 12. She had no other labs done. Urinalysis also be obtained. She will be treated with Protonix p.o. and a GI cocktail. She had a CAT scan earlier this year which are read view the reading. Repeat exam patient is doing well at 2:15 AM. Abdomen is benign. She had I went over all of her test results. Clinically she is feeling improved. Urine culture will be sent. She will be started on Keflex and follow-up with her primary care physician Dr. Guthrie. Lab Data Attestation: I reviewed the patient's lab results. Lab results narrative: CBC shows a normal white count 8. H&H 9.6 and 29 and the patient's hemoglobin normally runs between 10 and 12. Electrolytes show a gap of 6 a BUN of 31 and a creatinine of 2.17. This is consistent with her chronic renal insufficiency. Liver enzymes are unremarkable alk phos is 123. Lipase is normal at 193. Urinalysis is consistent with a urinary tract infection with 5-10 red cells, 10- 25 white cells and 3+ bacteria. No nitrates. A urine culture will be sent. Patient also had a CAT scan in June which showed umbilical hernia and gallstones. I reviewed the reading of that test. Labs: Laboratory Results - last 24 hr 09/29/21 09/29/21 09/29/21 00:00 00:40 00:40 WBC 8.3 RBC 3.19 L Hgb 9.6 L Hct 29.0 L MCV 90.9 MCH 30.1 MCHC 33.1 RDW Std Deviation 44.5 H RDW Coeff of Delgado 13.3 Plt Count 251 MPV 9.7 Immature Gran % (Auto) 0.200 Neut % (Auto) 48.4 Lymph % (Auto) 36.8 Fergus % (Auto) 8.2 Eos % (Auto) 5.7 H Baso % (Auto) 0.7 Absolute Neuts (auto) 4.0 Absolute Lymphs (auto) 3.04 Nucleated RBC % 0 Sodium 138 Potassium 4.3 Chloride 107 Carbon Dioxide 25.0 Anion Gap 6 BUN 31 H Creatinine 2.17 H Estim Creat Clear Calc 17.94 Est GFR (MDRD) Af Amer 29 L Est GFR (MDRD) Non-Af 24 L BUN/Creatinine Ratio 14.3 Glucose 108 H Calcium 9.2 Total Bilirubin 0.40 AST 12 L ALT 12 L Alkaline Phosphatase 123 H Total Protein 7.0 Albumin 3.3 Globulin 3.7 Albumin/Globulin Ratio 0.9 Lipase 193 Urine Color Yellow Urine Clarity Sl Cloudy Urine pH 6.5 Ur Specific Bethany 1.010 Urine Protein 15 H Urine Glucose (UA) Normal Urine Ketones Negative Urine Occult Blood 250 H Urine Nitrite Negative Urine Bilirubin Negative Urine Urobilinogen Normal Ur Leukocyte Esterase 500 H Urine RBC 5-10 SEEN Urine WBC 10-25 SEEN Ur Squamous Epith Cells 0-5 SEEN Urine Bacteria 3+ Urine Mucus 0 SEEN Discharge Plan Triage Chief Complaint: Complaint ED Provider: Braydon Arteaga Dx/Rx/DC Orders Clinical Impression: Urinary tract infection, Abdominal pain, History of diabetes mellitus, History of renal insufficiency Instructions: ED CYSTITIS Female Adult Prescriptions: New cephalexin 500 mg capsule 500 mg PO TID 10 Days Qty: 30 RF: 0 No Action indapamide 2.5 mg tablet 2.5 mg PO QAM Qty: 90 RF: 3 lisinopril 10 mg tablet 5 mg PO QDAY RF: 0 Adult Probiotic 3 billion cell capsule 3,000 mmu cells PO DAILY RF: 0 atorvastatin [Lipitor] 20 mg tablet 20 mg PO DAILY RF: 0 Otezla 30 mg tablet 30 mg PO QAM AND QPM RF: 0 omeprazole 20 mg capsule,delayed release(DR/EC) 20 mg PO DAILY RF: 0 montelukast [Singulair] 10 mg tablet 10 mg PO DAILY RF: 0 pioglitazone 15 mg tablet 15 mg PO DAILY RF: 0 GlipiZIDE 5 mg PO BID RF: 0 Oxybutynin 5 mg 1 tab PO TID Qty: 90 RF: 0 Primary Care Provider: Johanna Guthrie Referrals: Johanna Guthrie MD [Primary Care Provider] - 3-5 Days Activity Restrictions/Additional Instructions: Plenty of fluids and rest. Cranberry juice. Your labs look good. You have a chronic anemia and chronic renal insufficiency those are your baseline. Urine was consistent with a urinary tract infection. We sent a urine culture there is results should be back in 48 hours. Your primary care physician can check the urine culture results with the antibiotic that I started you on which is Keflex. Follow-up with your doctor in the next several days. Return if feeling worse. Disposition Disposition: Home, Self Care
[2021-09-29] MEDS: Pantoprazole Sodium 40 MG Tablet PO (00:31)
[2021-09-29] MEDS: Mag Hydrox/Al Hydrox/Simeth 30 ML UDC PO (00:31)
[2021-09-29 00:46] LABS: Mucous, Urine 0 SEEN /hpf (<or=2+)
[2021-09-29 00:48] LABS: Absolute Lymphocyte Count 3.04 X10^3/uL (0.83-4.51); Basophil# 0.06 X10^3/uL; Basophil% 0.7 % (0-1); Eosinophil# 0.47 X10^3/uL; Eosinophils% 5.7 % (0-5); Hemoglobin 9.6 g/dL (12.0-15.0); Lymphocyte # 3.04 X10^3/ul (0.83-4.51); Lymphocyte % 36.8 % (19-41); Mean Corp Hgb Conc 33.1 g/dL (32-36); Mean Corpuscular Hgb 30.1 pg (27.0-32.0); Mean Corpuscular Volume 90.9 fL (81-99); Mean Platelet Vol. 9.7 fl (6.2-12.0); Monocyte# 0.68 X10^3/uL; Monocyte% 8.2 % (0-10); NRBC Flagged by Analyzer 0 % (0-5); Neutrophil # 3.99 X10^3/uL (2.7-7.7); Neutrophil % 48.4 % (47-70); Platelet Count 251 K/mm3 (150-450); RBC Distribution Width CV 13.3 % (11.6-14.6); RBC Distribution Width SD 44.5 fl (35.1-43.9); Red Blood Count 3.19 M/mm3 (4.2-5.4); White Blood Count 8.3 K/mm3 (4.4-11.0)
[2021-09-29 01:04] LABS: Glucose, Dipstick Normal (Normal); Ketone-Dipstick Negative (Negative); Leukocyte Esterase-Dipstick 500 /ul (Negative); Nitrite-Dipstick Negative (Negative); Occult Blood-Urine 250 /ul (Negative); Protein-Dipstick 15 mg/dl (Negative); Urine Bilirubin Dipstick Negative (Negative); Urine Urobilinogen Normal (Normal); Urine pH 6.5 (5.0 - 8.0)
[2021-09-29 01:07] LABS: Color, Urine Yellow (Yellow); Urine Clarity Sl Cloudy (Clear)
[2021-09-29 01:10] LABS: Bacteria 3+ /hpf (None Seen); Red Blood Cells-Urine 5-10 SEEN /hpf (0-5); White Blood Cells 10-25 SEEN /hpf (0-5)
[2021-09-29 01:11] LABS: Squamous Epithelial Cells - UA 0-5 SEEN /hpf (5-10)
[2021-09-29 01:17] LABS: ALB/GLOB Ratio 0.9 RATIO (0.9-2.4); AST(SGOT) 12 U/L (15-37); Alanine Aminotransfer ALT/SGPT 12 U/L (13-56); Albumin, Serum 3.3 g/dL (3.2-5.0); Alkaline Phosphatase 123 U/L (45-117); Anion Gap 6 (5-15); BUN 31 mg/dL (7-18); BUN/Creat Ratio 14.3 RATIO (10-20); Calcium,Total 9.2 mg/dL (8.5-10.1); Chloride 107 mmol/L (98-107); Creatinine, Serum 2.17 mg/dL (0.55-1.02); EST Glomerular Filtration Rate 24 mL/min (>60); Est Glom Filt Rate - Afr Amer 29 mL/min (>60); Estimated Creatinine Clearance 17.94 ml/min; Globulin 3.7 g/dL (2.2-4.2); Glucose 108 mg/dL (74-106); Lipase 193 U/L (73-393); Potassium 4.3 mmol/L (3.5-5.1); Sodium Level 138 mmol/L (136-145)
[2021-09-29 01:48] VITALS: BP 144/68; PULSE 86; RESP 16; TEMP 36.5; O2SAT 99
[2021-09-29 02:23] VITALS: BP 144/64; PULSE 68; RESP 16; TEMP 36.5
[2021-09-29] MEDS: Cephalexin 250 MG Capsule 500 MG PO (02:29)
== END 2021-09-29 02:32 | disposition home or self-care (01) ==
PROVIDERS: Emergency Provider Emergency Medicine; PCP Family Medicine; Visit Provider Emergency Medicine
DX: N39.0 Urinary tract infection, site not specified (principal); E11.22 Type 2 diabetes mellitus with diabetic chronic kidney disease; D63.1 Anemia in chronic kidney disease; E78.5 Hyperlipidemia, unspecified; I12.9 Hypertensive chronic kidney disease with stage 1 through stage 4 chronic kidney disease, or unspecified chronic kidney disease; N18.9 Chronic kidney disease, unspecified; K21.9 Gastro-esophageal reflux disease without esophagitis; M19.90 Unspecified osteoarthritis, unspecified site; E66.9 Obesity, unspecified; Z68.36 Body mass index [BMI] 36.0-36.9, adult; Z79.84 Long term (current) use of oral hypoglycemic drugs; Z79.899 Other long term (current) drug therapy
CPT/HCPCS: 36415; 80053; 81001; 83690; 85025; 85027; 87086; 87088; 87186; 99284

== ENCOUNTER 2021-11-03 16:03 | Outpatient (CLI) | payer MEDICARE, OTHER, SELFPAY ==
[2021-11-11 13:50] LABS: HPV Reflexed? NOT INDICATED
== END 2021-11-03 23:59 | disposition home or self-care (01) ==
LOC: LABSPEC 16:06
PROVIDERS: PCP Family Medicine; Visit Provider Obstetrics & Gynecology
DX: N95.0 Postmenopausal bleeding (principal); Z12.4 Encounter for screening for malignant neoplasm of cervix
CPT/HCPCS: 88175; G0145

== ENCOUNTER 2021-11-10 12:11 | Outpatient (CLI) | payer MEDICARE, OTHER, SELFPAY ==
--- NOTE | 2021-11-10 12:14 | US_ITS ---
STUDY: ULTRASOUND OF THE FEMALE PELVIS - COMPLETE REASON FOR EXAM: Female, 70 years old. PMB LMP: Patient is postmenopausal. TECHNIQUE: Transabdominal and Transvaginal TECHNICAL QUALITY: Adequate. COMPARISON: None. FINDINGS: The uterus is anteverted and is in a midline position. The uterus measures 4.5 cm x 3.1 cm x 1.7 cm. Normal uterine cervix. The endometrium is thickened and measures 2.2 mm in thickness, and is fluid distended. There is no demonstrated endometrial mass. There is a 5 mm x 9 mm x 4 mm fibroid in the body of the uterus. I.U.D. - The patient does not have an I.U.D. The right ovary is non-visualized. The left ovary is non-visualized. There is no fluid in the cul-de-sac. The pre void volume of the bladder was 216 ml. The post void volume of the bladder was ml. US/Transvaginal Non- IMPRESSION: 5 mm x 9 mm x 4 mm fibroid in the body of the uterus. The endometrium measures 2.2 mm. Electronically Signed: Mitchel Mehta MD at 14:05 EDT ,
--- NOTE | 2021-11-10 12:14 | US_ITS ---
STUDY: ULTRASOUND OF THE FEMALE PELVIS - COMPLETE REASON FOR EXAM: Female, 70 years old. PMB LMP: Patient is postmenopausal. TECHNIQUE: Transabdominal and Transvaginal TECHNICAL QUALITY: Adequate. COMPARISON: None. FINDINGS: The uterus is anteverted and is in a midline position. The uterus measures 4.5 cm x 3.1 cm x 1.7 cm. Normal uterine cervix. The endometrium is thickened and measures 2.2 mm in thickness, and is fluid distended. There is no demonstrated endometrial mass. There is a 5 mm x 9 mm x 4 mm fibroid in the body of the uterus. I.U.D. - The patient does not have an I.U.D. The right ovary is non-visualized. The left ovary is non-visualized. There is no fluid in the cul-de-sac. The pre void volume of the bladder was 216 ml. The post void volume of the bladder was ml. US/Pelvic (Non ) IMPRESSION: 5 mm x 9 mm x 4 mm fibroid in the body of the uterus. The endometrium measures 2.2 mm. Electronically Signed: Mitchel Mehta MD at 14:05 EDT ,
== END 2021-11-10 23:59 | disposition home or self-care (01) ==
LOC: US 12:11
PROVIDERS: PCP Family Medicine; Referring Provider Obstetrics & Gynecology; Visit Provider Obstetrics & Gynecology
DX: N95.0 Postmenopausal bleeding (principal)
CPT/HCPCS: 76830; 76856

== ENCOUNTER → 2021-12-23 | Outpatient (CLI) | payer MEDICARE, OTHER, SELFPAY ==
--- NOTE | 2021-12-23 08:54 | ECHOCS_ITS ---
Reason For Study: DYSPNEA Procedure This was a 2D Doppler, Color Flow transthoracic echocardiogram. Exam performed in department. Left Ventricle The estimated ejection fraction is 65 %. No evidence for diastolic dysfunction. No regional wall motion abnormalities noted. Right Ventricle Normal RV size. Normal systolic function. Atria Normal left atrium. Normal right atrium. No doppler evidence for ASD. Mitral Valve There is no mitral valve stenosis. No mitral valve insufficiency. Tricuspid Valve There is no tricuspid stenosis. Trivial tricuspid valve insufficiency. Pulmonary artery systolic pressure is 45 mmHg. Aortic Valve There is no aortic stenosis. No aortic valve insufficiency. Pulmonic Valve There is no pulmonic valvular stenosis. No pulmonic valve insufficiency. Great Vessels Normal aortic root. Pericardium/Pleural No pericardial effusion. MMode/2D Measurements & Calculations LVIDd: 4.7 cm IVSd: 0.93 cm Ao root diam: 2.7 cm LVIDs: 2.2 cm LVPWd: 0.97 cm RVDd: 4.6 cm FS: 52.5 % LAV(MOD-bp): 52.2 ml LVAd ap4: 39.2 cm2 SV(MOD-sp4): 90.3 ml LAV(MOD-bp) Indexed: 27.6 ml/m2 LVLd ap4: 8.9 cm LAV(MOD-sp2): 52.8 ml EDV(MOD-sp4): 139.6 ml LAV(MOD-sp4): 49.8 ml EDV(sp4-el): 147.1 ml LVAs ap4: 21.0 cm2 LVLs ap4: 7.4 cm ESV(MOD-sp4): 49.3 ml ESV(sp4-el): 50.4 ml EF(MOD-sp4): 64.7 % EF(sp4-el): 65.7 % SV(sp4-el): 96.7 ml LA A4 area: 18.9 cm2 LA dimension(2D): 4.9 cm RA A4 area: 17.5 cm2 Doppler Measurements & Calculations MV E max drew: 117.0 cm/sec Lat Peak E' Drew: 6.1 cm/sec Med Peak E' Drew: 8.1 cm/sec MV A max drew: 135.3 cm/sec E/E' lat: 19.3 E/E' med: 14.4 MV E/A: 0.86 Ao V2 max: 151.5 cm/sec LV V1 max: 107.6 cm/sec PA V2 max: 117.7 cm/sec Ao max P.2 mmHg LV V1 max P.6 mmHg TR max drew: 315.0 cm/sec TR max P.7 mmHg ECHO/Echo Complete W/ Contrast Interpretation Summary The estimated ejection fraction is 65 %. No evidence for diastolic dysfunction. Ordering Physician: Cody Rivero Referring Physician: Cody Rivero V Performed By: Rosalia Nettles RCS
== END | disposition home or self-care (01) ==
LOC: CVS 08:50
PROVIDERS: PCP Family Medicine; Referring Provider Internal Medicine Pulmonary Disease; Visit Provider Internal Medicine Pulmonary Disease
DX: R06.00 Dyspnea, unspecified (principal)
CPT/HCPCS: 93306; Q9957; A4216; C8929

== ENCOUNTER 2022-03-20 16:00 | Emergency (ER) | payer MEDICARE, OTHER, SELFPAY ==
[2022-03-20 16:01] VITALS: BP 157/70; PULSE 101; RESP 18; TEMP 36.6; O2SAT 96; BMI 38.1
--- NOTE | 2022-03-20 16:16 | EX.ED.DYSGE1 ---
HPI History of Present Illness Chief Complaint: Other, Pain/Inj Detail of Chief Complaint: Neck pain Informant: patient Onset/Context/Timing Onset: Days (5 days) Context: Gradual Onset Current Severity: Moderate Maximum Severity: Moderate Narrative Narrative: Patient presents from urgent care secondary to neck pain. She states that on , 4 days ago, she developed left-sided neck pain that wrapped around the back of her neck and is now over to the right side as well. She thought she just slept wrong. Pain has persisted and continues to worsen. She is not taking anything for pain. She went to urgent care today and her tympanic temperature was 100.4. They did a COVID PCR test and sent her to the emergency room due to concern for discitis or meningitis. She denies fever or chills at home. She does not feel ill. She does not have a headache. [facility] Medical History Arthritis Asthma Diabetes type 2, controlled GERD (gastroesophageal reflux disease) History of melanoma Hyperlipemia Hypertension IBS (irritable bowel syndrome) Sleep apnea Home Medications GlipiZIDE PO BID 08/21/17 [History Last Taken Unknown] indapamide 2.5 mg tablet 2.5 mg PO QAM #90 tabs 08/21/17 [Rx Last Taken Unknown] Oxybutynin 1 tab PO TID #90 tabs 10/02/17 [Rx Last Taken Unknown] lactobacillus combination no.8 3 billion cell capsule (Adult Probiotic) 3,000 mmu cells PO DAILY 01/13/19 [History Last Taken Unknown] lisinopril 10 mg tablet 5 mg PO QDAY 01/13/19 [History Last Taken Unknown] apremilast 30 mg tablet (Otezla) 30 mg PO QAM AND QPM 04/04/21 [History Last Taken Unknown] atorvastatin 20 mg tablet (Lipitor) 20 mg PO DAILY 04/04/21 [History Last Taken Unknown] montelukast 10 mg tablet (Singulair) 10 mg PO DAILY 04/04/21 [History Last Taken Unknown] omeprazole 20 mg capsule,delayed release 20 mg PO DAILY 04/04/21 [History Last Taken Unknown] pioglitazone 15 mg tablet 15 mg PO DAILY 04/04/21 [History Last Taken Unknown] cephalexin 500 mg capsule 500 mg PO TID 10 days #30 caps 02/24/22 [Rx Last Taken Unknown] cyclobenzaprine 10 mg tablet 10 mg PO BID PRN muscle spasm #10 tabs 03/20/22 [Rx Last Taken Unknown] hydrocodone-acetaminophen 5-325mg 5mg-325mg 1 tab PO Q6H PRN pain 3 days #10 tabs 03/20/22 [Rx Last Taken Unknown] lidocaine 5 % topical patch (Lidoderm) 1 patch topical DAILY #15 ea 03/20/22 [Rx Last Taken Unknown] Allergy/AdvReac Type Severity Reaction Status Date / Time adhesive Allergy Rash Verified 03/20/22 16:03 amoxicillin [From Augmentin] Allergy Unknown Verified 03/20/22 16:03 clavulanic acid Allergy Unknown Verified 03/20/22 16:03 [From Augmentin] Penicillins [PCN] Allergy Other Verified 03/20/22 16:03 Sulfa (Sulfonamide Allergy Hives Verified 03/20/22 16:03 Antibiotics) STEROID SHOTS Allergy Other Uncoded 03/20/22 16:03 Family History Mother Diabetes Heart disease Hypertension Father Heart disease Cancer skin Grandfather Myocardial infarction 60s or 70s CVA (cerebral vascular accident) Surgical History H/O arthroscopic knee surgery hand and elbow surgery History of appendectomy History of carpal tunnel release History of cataract Status post left foot surgery Social History Smoking Status: Never smoker alcohol intake: never substance use type: does not use caffeine: Yes what type of physical activity do you participate in: walking frequency: 1-2 times per week seatbelt use: always do you feel safe at home: Yes additional social history: Employed [employer] ROS ROS ED Constitutional Constitutional ED: Denies chills or fever(s) Eyes Eyes: Denies change in vision or discharge from eye(s) ENT ENT ED: Denies discharge from eye(s), rhinorrhea or sore throat Cardiovascular Cardiovascular: Denies chest pain or palpitations Respiratory/Chest Respiratory/Chest: Denies cough or dyspnea Gastrointestinal Gastrointestinal: Denies abdominal pain, diarrhea, nausea or vomiting Genitourinary Genitourinary ED: Denies difficulty urinating or dysuria Musculoskeletal Musculoskeletal: Reports neck pain; Denies back pain or extremity pain Integumentary Denies Abrasions or rash Neurologic Neurologic: Denies headache(s) or weakness Psychiatric Psychiatric: Denies anxiety or depression Endocrine Endocrinology: Denies polydipsia or polyuria Allergic/Immunologic Allergic/Immunologic ED: Denies lip swelling or urticaria EXAM Physical Exam Const Vital Signs: 03/20/22 16:01 Temperature 97.8 F Temperature Source Temporal Pulse Rate 101 H Respiratory Rate 18 Blood Pressure 157/70 H Blood Pressure Mean 99 Pulse Ox 96 Oxygen Delivery Method Room Air Positive well nourished and well developed General Appearance ED: well developed HEENT Reports moist mucous membranes Eyes PERRL and EOMs intact bilaterally Neck no lymphadenopathy Neck Narrative: Reproducible musculoskeletal tenderness throughout the cervical region. Chest Wall inspection of chest normal and palpation of chest normal Resp normal respiratory effort and clear to auscultation bilaterally Cardio regular rate and regular rhythm GI non-tender Palpation: soft Extremity normal to inspection Neuro oriented x3 and no sensory deficits noted Motor Exam: strength 5/5 throughout Psych mental status grossly normal Skin no rashes or lesions noted MDM MDM MDM Narrative Medical decision making narrative: Oral temperature obtained at time of my exam is 97.8. Lab work obtained. Patient ordered a small dose of fentanyl along with Flexeril. I was notified later that patient had refused fentanyl. Lab Data Labs: Laboratory Results - last 24 hr 03/20/22 03/20/22 16:40 16:40 WBC 8.6 RBC 3.55 L Hgb 10.7 L Hct 33.0 L MCV 93.0 MCH 30.1 MCHC 32.4 RDW Std Deviation 43.3 RDW Coeff of Delgado 12.7 Plt Count 270 MPV 9.4 Immature Gran % (Auto) 0.200 Neut % (Auto) 61.0 Lymph % (Auto) 24.3 [place] % (Auto) 8.9 Eos % (Auto) 4.9 Baso % (Auto) 0.7 Absolute Neuts (auto) 5.3 Absolute Lymphs (auto) 2.10 Nucleated RBC % 0 ESR 54 H Sodium 136 Potassium 5.0 Chloride 105 Carbon Dioxide 24.0 Anion Gap 7 BUN 31 H Creatinine 2.03 H Estim Creat Clear Calc 18.90 Est GFR (MDRD) Af Amer 31 L Est GFR (MDRD) Non-Af 26 L BUN/Creatinine Ratio 15.3 Glucose 168 H Calcium 9.1 C-React Prot Ext Range 9.33 H Treatment and Re-Evaluation Narrative: Repeat evaluation patient resting comfortably. White count is normal. No left shift. Sed rate slightly elevated at 54 and CRP is 9.3. Chemistry studies unremarkable other than her chronic renal failure at baseline. Patient does have slight improvement in her pain. In my clinical opinion this is not an infectious etiology. She developed muscle pain in the left anterior lateral neck first that spread around her neck. She has not had a fever at home. Patient will be treated with Flexeril, Lidoderm patch, [place] to help her sleep at night. She can also use Tylenol during the day at home. Discharge Plan Triage Chief Complaint: Other, Pain/Inj ED Provider: Lisset Douglas Dx/Rx/DC Orders Clinical Impression: Musculoskeletal neck pain Instructions: ED Neck Spasm, No Trauma Prescriptions: New hydrocodone-acetaminophen 5-325 mg tablet 1 tab PO Q6H PRN (Reason: pain) 3 Days Qty: 10 0RF cyclobenzaprine 10 mg tablet 10 mg PO BID PRN (Reason: muscle spasm) Qty: 10 0RF lidocaine [Lidoderm] 5 % adhesive patch,medicated 1 patch topical DAILY Qty: 15 0RF Rx Instructions: leave on most painful area for up to 12 hrs No Action indapamide 2.5 mg tablet 2.5 mg PO QAM Qty: 90 3RF lisinopril 10 mg tablet 5 mg PO QDAY Adult Probiotic 3 billion cell capsule 3,000 mmu cells PO DAILY atorvastatin [Lipitor] 20 mg tablet 20 mg PO DAILY Otezla 30 mg tablet 30 mg PO QAM AND QPM omeprazole 20 mg capsule,delayed release(DR/EC) 20 mg PO DAILY montelukast [Singulair] 10 mg tablet 10 mg PO DAILY pioglitazone 15 mg tablet 15 mg PO DAILY GlipiZIDE 5 mg PO BID cephalexin 500 mg capsule 500 mg PO TID 10 Days Qty: 30 0RF Oxybutynin 5 mg 1 tab PO TID Qty: 90 0RF Primary Care Provider: Johanna Guthrie Referrals: Johanna Guthrie MD [Primary Care Provider] - 1 Week Disposition Disposition: Home, Self Care
[2022-03-20] MEDS: 0.9% Normal Saline 1,000 ML 150 ML IV (16:53)
[2022-03-20] MEDS: cycloBENZAPRine HCl 10 MG Tablet PO (16:53)
[2022-03-20 16:56] LABS: Absolute Neutrophil Count 5.3 X10^3/uL (2.0-7.7); Basophil# 0.06 X10^3/uL; Basophil% 0.7 % (0-1); Eosinophil# 0.42 X10^3/uL; Eosinophils% 4.9 % (0-5); Hemoglobin 10.7 g/dL (12.0-15.0); Lymphocyte % 24.3 % (19-41); Mean Corp Hgb Conc 32.4 g/dL (32-36); Mean Corpuscular Hgb 30.1 pg (27.0-32.0); Mean Platelet Vol. 9.4 fl (6.2-12.0); Monocyte# 0.77 X10^3/uL; Monocyte% 8.9 % (0-10); NRBC Flagged by Analyzer 0 % (0-5); Neutrophil # 5.27 X10^3/uL (2.7-7.7); Platelet Count 270 K/mm3 (150-450); RBC Distribution Width CV 12.7 % (11.6-14.6); RBC Distribution Width SD 43.3 fl (35.1-43.9); Red Blood Count 3.55 M/mm3 (4.2-5.4); White Blood Count 8.6 K/mm3 (4.4-11.0)
[2022-03-20 17:02] LABS: Erythrocyte Sedimentation Rate 54 mm/hr (0-30)
[2022-03-20 17:11] LABS: Anion Gap 7 (5-15); BUN 31 mg/dL (7-18); BUN/Creat Ratio 15.3 RATIO (10-20); CRP 9.33 mg/L (0.0-3.0); Calcium,Total 9.1 mg/dL (8.5-10.1); Chloride 105 mmol/L (98-107); Creatinine, Serum 2.03 mg/dL (0.55-1.02); EST Glomerular Filtration Rate 26 mL/min (>60); Est Glom Filt Rate - Afr Amer 31 mL/min (>60); Glucose 168 mg/dL (74-106); Sodium Level 136 mmol/L (136-145)
[2022-03-20 18:42] VITALS: BP 132/74; PULSE 62; RESP 15; O2SAT 98
== END 2022-03-20 18:43 | disposition home or self-care (01) ==
PROVIDERS: Emergency Provider Emergency Medicine; PCP Family Medicine; Visit Provider Emergency Medicine
DX: M45.2 Ankylosing spondylitis of cervical region (principal); E11.22 Type 2 diabetes mellitus with diabetic chronic kidney disease; E78.5 Hyperlipidemia, unspecified; I12.9 Hypertensive chronic kidney disease with stage 1 through stage 4 chronic kidney disease, or unspecified chronic kidney disease; N18.9 Chronic kidney disease, unspecified; Z79.84 Long term (current) use of oral hypoglycemic drugs; Z79.899 Other long term (current) drug therapy
CPT/HCPCS: 80048; 85025; 85652; 86140; 96360; 96361; 99283; J7030

== ENCOUNTER → 2022-03-28 | Outpatient (CLI) | payer MEDICARE, OTHER, SELFPAY ==
[2022-03-28 10:29] LABS: Absolute Lymphocyte Count 1.58 X10^3/uL (0.83-4.51); Absolute Neutrophil Count 3.7 X10^3/uL (2.0-7.7); Basophil# 0.06 X10^3/uL; Eosinophil# 0.42 X10^3/uL; Eosinophils% 6.8 % (0-5); Hematocrit 31.9 % (37-47); Lymphocyte # 1.58 X10^3/ul (0.83-4.51); Lymphocyte % 25.4 % (19-41); Mean Corp Hgb Conc 31.3 g/dL (32-36); Mean Corpuscular Hgb 29.6 pg (27.0-32.0); Mean Corpuscular Volume 94.4 fL (81-99); Mean Platelet Vol. 9.2 fl (6.2-12.0); Monocyte# 0.42 X10^3/uL; Monocyte% 6.8 % (0-10); NRBC Flagged by Analyzer 0 % (0-5); Neutrophil # 3.71 X10^3/uL (2.7-7.7); Neutrophil % 59.7 % (47-70); Platelet Count 303 K/mm3 (150-450); RBC Distribution Width CV 12.6 % (11.6-14.6); RBC Distribution Width SD 43.5 fl (35.1-43.9); Red Blood Count 3.38 M/mm3 (4.2-5.4); White Blood Count 6.2 K/mm3 (4.4-11.0)
[2022-03-28 11:06] LABS: Vitamin B12 > 2000 pg/mL (211-911)
[2022-03-28 11:14] LABS: Cholesterol 151 mg/dL (200); Ferritin 93 ng/mL (8-252); High Density Lipoprotein 42 mg/dL; Iron 39 ug/dL (50-170); Iron Binding Capacity,Total 252 ug/dL (250-450); PERCENT IRON SATURATION 15.5 % (15.0-55.0); Triglycerides 136 mg/dL; Very Low Density Lipoprotein 27 mg/dL (5-40)
== END | disposition home or self-care (01) ==
LOC: MTLAB 08:49
PROVIDERS: PCP Family Medicine; Referring Provider Family Medicine; Visit Provider Family Medicine
DX: I12.9 Hypertensive chronic kidney disease with stage 1 through stage 4 chronic kidney disease, or unspecified chronic kidney disease (principal); N18.4 Chronic kidney disease, stage 4 (severe); D63.1 Anemia in chronic kidney disease; E78.5 Hyperlipidemia, unspecified
CPT/HCPCS: 36415; 80061; 82607; 82728; 82746; 83540; 83550; 85025

== ENCOUNTER → 2022-04-18 | Outpatient (CLI) | payer MEDICARE, OTHER, SELFPAY ==
[2022-04-24 18:07] LABS: HPV APTIMA, High Risk Negative (Negative)
== END | disposition home or self-care (01) ==
LOC: LABSPEC 14:04
PROVIDERS: PCP Family Medicine; Visit Provider Obstetrics & Gynecology
DX: Z12.4 Encounter for screening for malignant neoplasm of cervix (principal)
CPT/HCPCS: 87624; 88175; G0145

== ENCOUNTER → 2022-04-28 | Outpatient (CLI) | payer MEDICARE, OTHER, SELFPAY ==
--- NOTE | 2022-04-28 08:56 | BI_ITS ---
MAMMOGRAPHY - BILATERAL SCREENING 3-D TOMOSYNTHESIS REASON FOR EXAM: Female, 71 years old. breast cancer screening PERTINENT HISTORY: No significant family history. TECHNIQUE: 2-D mammograms and 3-D Tomosynthesis of the breast (s) were performed. CAD was performed. COMPARISON: 04/26/2021 FINDINGS: The breast composition is heterogeneously dense that can obscure small breast masses. Scattered benign calcifications are seen. No dense spiculated masses or suspicious microcalcifications are identified. No architectural distortion is identified. There is no skin thickening or retraction. There has been no significant change since the prior study. Bilateral benign micha like calcifications. BI/SCRN MAMM (CAD)W/GUY BILAT IMPRESSION: No mammographic signs of malignancy. Routine yearly mammograms recommended. ASSESSMENT CATEGORY: BIRADS Category 2: Benign. A letter regarding these results will be sent to the patient by the facility within 30 days. FOLLOW UP RECOMMENDATION: Yearly follow up mammogram recommended. (A) Approximately 10% of breast cancers are not detected by mammography. A normal mammogram should not delay biopsy of a clinically suspicious abnormality. Electronically Signed: Esau Bueno MD at 8:40 EDT ,
== END | disposition home or self-care (01) ==
LOC: OPBI 08:51
PROVIDERS: PCP Family Medicine; Visit Provider Obstetrics & Gynecology
DX: Z12.31 Encounter for screening mammogram for malignant neoplasm of breast (principal)
CPT/HCPCS: 77063; 77067

== ENCOUNTER → 2022-05-04 | Outpatient (CLI) | payer MEDICARE, OTHER, SELFPAY ==
--- NOTE | 2022-05-04 09:06 | BD_ITS ---
STUDY: DUAL ENERGY X-RAY ABSORPTIOMETRY / DXA REASON FOR EXAM: Female, 71 years old. Postmenopausal TECHNIQUE: Bone Mineral Density (BMD) measurements of lumbar spine and bilateral hips were obtained. COMPARISON: Comparison is made with prior study 04/06/2011. FINDINGS: Lumbar Spine (L1-L4): g/cm2 (0.910) / T-score (-0.9) / Z-score (1.2) Findings are suggestive of normal bone density with a low fracture risk. Left Femur Total: g/cm2 (0.852) / T-score (-0.7) / Z-score (0.9) Left Femoral Neck: g/cm2 (0.631) / T-score (-2.0) / Z-score (0.0) Right Femur Total: g/cm2 (0.788) / T-score (-1.3) / Z-score (0.4) Right Femoral Neck: g/cm2 (0.596) / T-score (-2.3) / Z-score (-0.3) The T-Scores on the most recent prior examination were: Lumbar Spine (L1-L4): There has been worsening of bone density since the previous examination. Left Femur Total: which represents a worsening of 17.5%. Right Femur Total: which represents a worsening of 20.8%. BD/Dexa Bone Density Study IMPRESSION: The patient is considered osteopenic as outlined below according to World Guillermo Organization (WHO) criteria with a high fracture risk. There has been worsening of bone density since the previous examination. Reference Information: The T-score is the number of standard deviations above or below the standard which is normal for young adults at their peak bone mineral density. The World Health Organization (WHO) interprets the T-scores as follows: Above -1 Normal bone density Between -1 and -2.5 Osteopenia Equal to / or below -2.5 Osteoporosis As a practical clinical guideline, osteopenia may be graded as follows: Mild -1 through -1.5 Moderate -1.6 through -2.0 Severe -2.1 through -2.4 The Z-score is the number of standard deviations above or below age-matched controls. A Z-score of less than -1.5 would be considered abnormal. References: 1. NIH Osteoporosis and Related Bone Diseases www osteo.org 2. International Society for Clinical Densitometry www iscd.org 3. National Osteoporosis Foundation www nof.org Electronically Signed: Mitchel Mehta MD at 8:16 EDT ,
== END | disposition home or self-care (01) ==
LOC: OPBD 09:05
PROVIDERS: PCP Family Medicine; Visit Provider Obstetrics & Gynecology
DX: Z13.820 Encounter for screening for osteoporosis (principal); Z78.0 Asymptomatic menopausal state
CPT/HCPCS: 77080

== ENCOUNTER 2022-07-13 15:11 | Emergency (ER) | payer MEDICARE, OTHER, SELFPAY ==
[2022-07-13 15:13] VITALS: BP 155/67; PULSE 98; RESP 15; TEMP 36.1; O2SAT 98; BMI 39.2
--- NOTE | 2022-07-13 15:25 | NURSING ---
NO OLD EKGS
--- NOTE | 2022-07-13 15:43 | VDLE_ITS ---
Reason For Study: Pain RIGHT GSV is normal. CFV is compressible, spontaneous, phasic, competent and demonstrates normal augmentation. FV is compressible, spontaneous, phasic, competent and demonstrates normal augmentation. POP V is compressible, spontaneous, phasic, competent and demonstrates normal augmentation. T/P Trunk is compressible. PTV is compressible. RT PerV is compressible. Nonvascularized structure noted in the right popliteal fossa that measures 1.10 x 3.57 x 4.52 cm. Procedure This is a venous duplex using B-mode, color flow and spectral Doppler. Exam performed portable in ED. A preliminary report was called and/or faxed to ED. VL/Venous Duplex US, Unilateral Interpretation Summary There is no evidence of right lower extremity deep vein thrombosis. Right great saphenous vein appears patent and compressible segmentally. Right popliteal space 1.1 x 3.57 x 4.52 cm non-vascular structure, likely Rowan's cyst, clinical correlation would be appropriate. Ordering Physician: Ashwin Summers Referring Physician: Johanna Guthrie Performed By: Birdie Conroy RVT
--- NOTE | 2022-07-13 15:43 | ED.VIS.LOWEX ---
HPI History of Present Illness Chief Complaint: Lower Extremity Injury Informant: patient Narrative Narrative: Sent from urgent care for DVT rule out. Pain behind right thigh down her leg since yesterday. Denies trauma. No recent travels. She has a history of Rowan's cyst in the back knee. There is mild discomfort there. Able to ambulate. History of osteoarthritis and psoriatic arthritis on immunosuppressants. She has tramadol that she uses at night. She is follows rheumatology. Complain mild back pain however no radicular symptoms in the past. [facility] Medical History (Updated 07/13/22 @ 16:[address] Ashwin Summers DO) Arthritis Asthma Diabetes type 2, controlled GERD (gastroesophageal reflux disease) History of melanoma Hyperlipemia Hypertension IBS (irritable bowel syndrome) Osteopenia determined by x-ray Psoriatic arthritis Sleep apnea Home Medications GlipiZIDE PO BID 08/21/17 [History Last Taken Unknown] indapamide 2.5 mg tablet 2.5 mg PO QAM #90 tabs 08/21/17 [Rx Last Taken Unknown] Oxybutynin 1 tab PO TID #90 tabs 10/02/17 [Rx Last Taken Unknown] lactobacillus combination no.8 3 billion cell capsule (Adult Probiotic) 3,000 mmu cells PO DAILY 01/13/19 [History Last Taken Unknown] lisinopril 10 mg tablet 5 mg PO QDAY 01/13/19 [History Last Taken Unknown] apremilast 30 mg tablet (Otezla) 30 mg PO QAM AND QPM 04/04/21 [History Last Taken Unknown] atorvastatin 20 mg tablet (Lipitor) 20 mg PO DAILY 04/04/21 [History Last Taken Unknown] montelukast 10 mg tablet (Singulair) 10 mg PO DAILY 04/04/21 [History Last Taken Unknown] omeprazole 20 mg capsule,delayed release 20 mg PO DAILY 04/04/21 [History Last Taken Unknown] pioglitazone 15 mg tablet 15 mg PO DAILY 04/04/21 [History Last Taken Unknown] cholecalciferol (vitamin D3) 50 mcg (2,000 unit) capsule 50 mcg PO DAILY 04/18/22 [History Last Taken Unknown] cinnamon bark 500 mg capsule 500 mg PO DAILY 04/18/22 [History Last Taken Unknown] mecobalamin (vitamin B12) 1,000 mcg chewable tablet 1,000 mcg PO DAILY 04/18/22 [History Last Taken Unknown] Allergy/AdvReac Type Severity Reaction Status Date / Time adhesive Allergy Rash Verified 07/13/22 15:12 amoxicillin [From Augmentin] Allergy Unknown Verified 07/13/22 15:12 clavulanic acid Allergy Unknown Verified 07/13/22 15:12 [From Augmentin] Penicillins [PCN] Allergy Other Verified 07/13/22 15:12 Sulfa (Sulfonamide Allergy Hives Verified 07/13/22 15:12 Antibiotics) STEROID SHOTS Allergy Other Uncoded 07/13/22 15:12 Family History Mother Diabetes Heart disease Hypertension Father Heart disease Cancer skin Grandfather Myocardial infarction 60s or 70s CVA (cerebral vascular accident) Surgical History H/O arthroscopic knee surgery hand and elbow surgery History of appendectomy History of carpal tunnel release History of cataract Status post left foot surgery Social History (Updated 04/18/22 @ 09:31 by Johanna Yuan) Smoking Status: Never smoker alcohol intake: never substance use type: does not use caffeine: No what type of physical activity do you participate in: walking frequency: 1-2 times per week seatbelt use: always do you feel safe at home: Yes additional social history: Employed [employer] ROS ROS ED Constitutional Constitutional ED: Denies chills, fever(s) or sweats Eyes Eyes: Denies change in vision ENT ENT ED: Denies dysphagia or sore throat Cardiovascular Cardiovascular: Denies chest pain, leg edema, palpitations or racing heartbeat Respiratory/Chest Respiratory/Chest: Denies cough, dyspnea or dyspnea on exertion Gastrointestinal Gastrointestinal: Denies abdominal pain, diarrhea, nausea or vomiting Genitourinary Genitourinary ED: Denies dysuria, hematuria or urinary frequency Musculoskeletal Musculoskeletal: Reports extremity pain and other Details: Right lower leg. ; Denies back pain or neck pain Integumentary Denies rash or wounds Neurologic Neurologic: Denies headache(s), paresthesias or weakness EXAM Physical Exam Const Vital Signs: 07/13/22 15:13 Temperature 96.9 F L Temperature Source Temporal Pulse Rate 98 Respiratory Rate 15 Blood Pressure 155/67 H Blood Pressure Mean 96 Pulse Ox 98 Oxygen Delivery Method Room Air Positive well nourished and well developed General Appearance ED: well developed and NAD HEENT Reports moist mucous membranes normocephalic and atraumatic Eyes PERRL, EOMs intact bilaterally and conjunctivae normal General Eye ED: Yes normal appearance of both eyes Neck no lymphadenopathy and supple General: Negative for tenderness Chest Wall Chest: Negative for tenderness Resp normal respiratory effort and normal air movement Effort and Inspection: symmetric chest movement; Negative for respiratory distress Cardio regular rate, regular rhythm and no murmurs Peripheral Pulses: pulses 2+ throughout GI normal to inspection, nondistended, normoactive bowel sounds and non-tender Palpation: Negative for guarding or rebound tenderness present Back/Spine no CVA tenderness and no thoracic nor lumbar tenderness Extremity Extremity Narrative: Right lower extremity tender in the posterior hamstrings along with mild medial thigh there is tenderness popliteal fossa. No calf tenderness. Pulses intact distally. Straight leg test was negative. General Extremety ED: Negative for edema or tenderness General Extremity: Negative for edema Neuro oriented x3 and no sensory deficits noted Sensorium / Orientation: awake and alert Skin no rashes or lesions noted and no wounds MDM MDM MDM Narrative Medical decision making narrative: Right lower extremity negative for DVT. Noted Rowan's cyst. There is no restriction of range of motion. Discussed findings with patient. Also discussed concerns more of sciatica symptoms with her arthritis issues in her back. She is able to ambulate. She has tramadol at home to use as needed she will monitor symptoms. She follow-up with her PCP. All questions were answered. Radiography Diagnostic Testing: Clinical Impression(s) from Imaging Studies Venous Doppler Study 07/13/22 15:43 Interpretation Summary There is no evidence of right lower extremity deep vein thrombosis. Right great saphenous vein appears patent and compressible segmentally. Right popliteal space 1.1 x 3.57 x 4.52 cm non-vascular structure, likely Rowan's cyst, clinical correlation would be appropriate. Ordering Physician: Ashwin Summers Referring Physician: Johanna Guthrie Performed By: Birdie Conroy RVT Discharge Plan Triage Chief Complaint: Lower Extremity Injury ED Provider: Ashwin Summers Dx/Rx/DC Orders Clinical Impression: Synovial cyst of popliteal space [Rowan], right knee, Right sided sciatica Instructions: ED Rowan's Cyst, ED Sciatica Prescriptions: No Action indapamide 2.5 mg tablet 2.5 mg PO QAM Qty: 90 3RF lisinopril 10 mg tablet 5 mg PO QDAY Adult Probiotic 3 billion cell capsule 3,000 mmu cells PO DAILY atorvastatin [Lipitor] 20 mg tablet 20 mg PO DAILY Otezla 30 mg tablet 30 mg PO QAM AND QPM omeprazole 20 mg capsule,delayed release(DR/EC) 20 mg PO DAILY montelukast [Singulair] 10 mg tablet 10 mg PO DAILY pioglitazone 15 mg tablet 15 mg PO DAILY mecobalamin (vitamin B12) 1,000 mcg tablet,chewable 1,000 mcg PO DAILY cinnamon bark 500 mg capsule 500 mg PO DAILY cholecalciferol (vitamin D3) 50 mcg (2,000 unit) capsule 50 mcg PO DAILY GlipiZIDE 5 mg PO BID Oxybutynin 5 mg 1 tab PO TID Qty: 90 0RF Primary Care Provider: Johanna Guthrie Referrals: Johanna Guthrie MD [Primary Care Provider] - 1 Week if not improving Activity Restrictions/Additional Instructions: Right lower extremity ultrasound negative for DVT. Rowan's cyst up to 4.5 cm. Continue home tramadol monitor symptoms. Follow-up with your doctor. Disposition Disposition: Home, Self Care Discharge Date/Time: 07/13/22 16:26
== END 2022-07-13 16:26 | disposition home or self-care (01) ==
PROVIDERS: Emergency Provider Emergency Medicine; PCP Family Medicine; Visit Provider Emergency Medicine
DX: M71.21 Synovial cyst of popliteal space [Baker], right knee (principal); M46.90 Unspecified inflammatory spondylopathy, site unspecified; E11.9 Type 2 diabetes mellitus without complications; M54.9 Dorsalgia, unspecified; M54.31 Sciatica, right side; I10 Essential (primary) hypertension; E78.5 Hyperlipidemia, unspecified; M79.661 Pain in right lower leg
CPT/HCPCS: 93971; 99282

== ENCOUNTER 2022-11-16 17:30 | Outpatient (RCR) | payer MEDICARE, OTHER, SELFPAY ==
--- NOTE | 2022-10-19 17:50 | HP.PTEVAL_ITS ---
Patient's Visit Information LIV DEWEY is a 71 year old F referred to Physical Therapy by JIM TOMLIN with a diagnosis of c/s spondylosis. Date of Evaluation: 10/19/22 Physical Therapist: Luis Fernando Richard, MALORIET, OCS, CSCS - Visit Plan Frequency: 2x /Week Duration: 2-4 Weeks Plan: 2x/week for 2-4 weeks for... 1. US thermal to L UT area, STM to same and MH as needed. 2. ROM and stretching to L UT and lev scap and SCM(pt doing at home today). 3. Neck ROM and scap/neck strength when feeling better. - Subjective Feels like something crawling in neck, L side only and down into shoulder, No new arm symptoms. It is more irritating than painful. Described as 3-4/10 all the time. It has been about 3 weeks and not sure what started it. It doesn't keep her from doing anything. No regular exercise for neck. Walks for fitness when weather allows. Sleep is not interrupted by this but sleeps well with tramadol. 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 Basic ADLs are normal for her. Hobbies: Take classes , no problem. Hard to turn head in car driving. Has been like that for a while, better now that it hurts? - Pain L neck Pain Intensity (Out of 10): 1 Pain Intensity Range: 1, 4 - Objective Posture is forward head adn protracted scapula B kyphosis in Thoracic spine. Tender to palpation all over neck but noticeably more L UT and SCM. cervical rotation L 58 and pain reproduced, R rotation is 62 no pain, extension 50 no pain, flexion no pain. SB are OK but stretching L side hurts. scap mobility is painfree and fair. Shoulder mobility is 130 elevation stiff but not painful, otherwise WFL and without increased neck pain. elbow and wrist AROM WFL. Pecs mildly tight. reflexes 0/3 bi and tri. Sensation UE WNL to gross light touch. Strength UE is 3/5 in range but painful tenderness all over when pushing on arms to test strength. - Balance/Special Test Scores Oswestry Neck Score: 14 - Goals Goal 1:: Pain in L UT 0-1/10 at all times and 90% better. Goal Time Frame: 2-4 Weeks Goal 2:: Full cervical aROM symmetrical without pain neck Goal Time Frame: 2-4 Weeks Goal 3:: I appropriate ex to manage condition Goal Time Frame: 2-4 Weeks Goal 4:: oswestry neck 5 or less. Goal Time Frame: 2-4 Weeks - Rehabilitation Potential Physical Therapy Diagnosis: degenerative changes, soft tissue inflammation and FM poorly managed. Rehabilitation Potential: Fair - Anticipated Interventions Patient/Client Instruction: Educate patient on: Condition, Plan of Care For the Purpose of:: To decrease pain, To increase ROM, To improve nutrient delivery to tissue, To improve muscle performance and motor function, To improve ability of physical actions for home/community/work/leisure Therapeutic Exercise to Include: Strength training, Postural training, Flexibilty training, Scapular Strength/Stabilization For the Purpose of:: To decrease pain, To increase ROM, To improve nutrient delivery to tissue, To improve muscle performance and motor function, To improve ability of physical actions for home/community/work/leisure Manual Therapy Techniques to Include: Mobilization, Passive ROM, Soft tissue mobilization For the Purpose of:: To decrease pain, To increase ROM Thermo therapy (hot pack): Yes - L neck Ultrasound (thermal/non thermal): Yes - L neck For the Purpose of:: To decrease pain Thank you for the opportunity to evaluate your patient. For Medicare and Medicare HMO plans, please review the plan of care and approve it. It will need to be FAXED BACK to us at [phone] for Medicare purposes. For Medicare only, by signing this I certify the plan of care. Please let me know if there are questions or concerns regarding this plan of care. Physician Signature: Date:
--- NOTE | 2022-11-16 18:14 | HP.PTDCSUM ---
It has been my pleasure to treat LIV DEWEY referred by JIM TOMLIN, with the diagnosis of c/s spondylosis for a total of 9 visit(s). Discharge Date: 11/16/22 Please see the following information for a summary of their discharge status. Subjective: Working on that spot is not helping any. Will have CT scan of neck next week due to throat problems as it feels like it is closing.Tinlgy in neck is better but still present L neck without an obvious pattern. Sleeping well. activities normal. To doctor . L neck Pain Intensity (Out of 10): 3 % Improvement: 25 Objective/Function: 70 ext rom, 65 B rotation, slight discomfort end range R rotation on l noticeable. UE AROM WFL. Still palpable knots L UT and lev scap that are minimally tender but not clearly related to her symptoms. Goal 1:: Pain in L UT 0-1/10 at all times and 90% better. Goal Progress: Progressing Goal 2:: Full cervical aROM symmetrical without pain neck Goal Progress: Progressing Goal 3:: I appropriate ex to manage condition Goal Progress: Progressing Goal 4:: oswestry neck 5 or less. Goal Progress: Not Progressing Plan: d/c, pt to have scan of neck adn will see pain doctor in 2 weeks. Discharge Comments: Pt seen for 9 visits and is minimally better. Will have scan of neck due to throat closing and maybe that will shed some light. will see pain doctor in 2 weeks If there are questions or concerns regarding this patient's physical therapy, please feel free to call me at [phone]. Thank you for the referral of this patient. Sincerely, Luis Fernando Richard, DPT, OCS, CSCS Balance/Gait/Functional tests - Balance/Special Test Scores Oswestry Neck Score: 12
== END 2022-11-16 19:00 | disposition home or self-care (01) ==
LOC: PT 17:30
PROVIDERS: PCP Family Medicine
DX: M47.22 Other spondylosis with radiculopathy, cervical region (principal)
CPT/HCPCS: 97035; 97110; 97140; 97162; 97164; 97530

== ENCOUNTER → 2022-11-22 | Outpatient (CLI) | payer MEDICARE, OTHER, SELFPAY ==
--- NOTE | 2022-11-22 17:43 | CT_ITS ---
INDICATION: SOB EXAMINATION: CT NECK WITH CONTRAST - CT Maxillofacial and Neck W/O Contrast Injection COMPARISON: None. Findings: Noncontrast serial CT axial images through the orbits, extending through the face and neck with coronal and sagittal reformatted series. SKULL BASE: Visualized brain parenchyma is unremarkable. ORBITS: No obvious acute globe abnormality. No infiltration the orbital fat. SOFT TISSUES: No prevertebral soft tissue thickening. Airway is unremarkable. No focal fluid collection, mass, or adenopathy. No infiltration of the deep fat planes of the face or neck. No thickening of the epiglottis or aryepiglottic folds. Lung apices are unremarkable. OSSEOUS STRUCTURES: No TMJ subluxation. Paranasal sinuses appear clear. No evidence of cervical spine fracture or subluxation. No concerning bony lesion or abnormal sclerosis to suggest lesion. DISCS/JOINTS: No significant degenerative change. CT/Soft Tissue Neck without Contr IMPRESSION: No focal fluid collection, mass, or adenopathy in this noncontrast examination. Airway is unremarkable. Electronically Signed: Jose Winston MD at 0:00 EDT ,
== END | disposition home or self-care (01) ==
LOC: CT 17:38
PROVIDERS: PCP Family Medicine; Referring Provider Internal Medicine Pulmonary Disease; Visit Provider Internal Medicine Pulmonary Disease
DX: R06.02 Shortness of breath (principal)
CPT/HCPCS: 70490

== ENCOUNTER → 2022-12-20 | Outpatient (CLI) | payer MEDICARE, OTHER, SELFPAY ==
--- NOTE | 2022-12-20 06:41 | MRI_ITS ---
INDICATION: Neck pain, radiculopathy. EXAMINATION: MR Spine Cervical W/O Contrast TECHNIQUE: Multiplanar and multisequence MR images of the cervical spine were performed. IV Contrast Dosage and Agent: None. COMPARISON: CT neck November 21, 2022. FINDINGS: Exam is degraded by motion artifact. VERTEBRAE: Normal vertebral bodies and posterior elements. VERTEBRAL ALIGNMENT: Normal, including the craniocervical junction and cervicothoracic junction. No spondylolisthesis. There is preservation of the normal cervical lordosis. CERVICAL SPINAL CORD: Normal morphology. Patient motion artifact on the sagittal T2 and STIR sequences and the axial T2 FSE series. No definite abnormal spinal cord signal intensity identified. NECK SOFT TISSUES: No prevertebral soft tissue swelling. There is no cervical adenopathy. AXIAL IMAGES: C2-3: No disc protrusion. Moderate bilateral facet arthropathy. No spinal canal or foraminal stenosis. C3-4: No disc protrusion. Asymmetric moderate left and mild right facet arthropathy. No significant spinal canal or foraminal stenosis. C4-5: No focal disc protrusion. Asymmetric right facet arthropathy. No spinal canal or foraminal narrowing. C5-6: No focal disc protrusion. There is bilateral facet arthropathy. No significant spinal canal or foraminal narrowing. C6-7: There is a broad right central disc protrusion. Mild effacement of the ventral thecal sac. No significant ventral cord flattening or spinal canal stenosis. No significant foraminal narrowing. C7-T1: Unremarkable. MRI/Spine Cervical (Routine) IMPRESSION: Mild cervical spondylosis changes as described. Electronically Signed: Rylan Skelton MD at 21:07 EDT ,
== END | disposition home or self-care (01) ==
PROVIDERS: PCP Family Medicine
DX: M54.12 Radiculopathy, cervical region (principal)
CPT/HCPCS: 72141

== ENCOUNTER 2023-03-07 16:30 | Outpatient (RCR) | payer MEDICARE, OTHER, SELFPAY ==
--- NOTE | 2023-02-16 10:46 | HP.PTEVAL_ITS ---
Patient's Visit Information Visit Information Visit Information: LIV DEWEY is a 72 year old F referred to Physical Therapy by Dr. Alon Auguste MD with a diagnosis of R RTC tendinopathy. Date of Evaluation: 02/16/23 Physical Therapist: Brady Barcenas DPT Visit Plan Frequency: 2x /Week Duration: 6 Weeks Plan: Start with phase III RTC strengthening (may have to start light). Trial manual progressing to mechanical traction if helpful. Progress HEP as tolerated. Subjective Subjective: Pt. is here today for her initial evaluation with diagnosis of R RTC tendinopathy. Pt. reports having R shoulder pain few years, but it seems like it has become worse. Pt. reports pain in her R UE down her elbow at times. Pain in her shoulder ins more anterior, but is occasionally in her shoulder blade as well. No N/T in her R arm, L UT tingling at times. Pt. did have an MRI of her shoulder, showed RTC atrophy. Pt. also has neck pain bilaterally and cracks a lot. Pt. is hopeful to reduce symptoms in order to have improved quality of life. Pain Neck: Pain Intensity (Out of 10): 1 Pain Intensity Range: 0 and 7 R shoulder: Pain Intensity (Out of 10): 1 Objective Objective: POSTURE: Pt. has FH posture, sounded shoulders. Pt. has increased thoracic kyphosis. PALPATION: Pt. has tenderness at anterior shoulder near bicipital groove. No major pain throughout rest of sub acromial space. NEURO: normal throughout. Normal DTR of BUEs. ROM: CERVICAL SPINE: flexion mod loss, ext mod loss increase NW, rotation R/L mod loss increase NW bilat, SB mod/max loss increase NW bilat. R shoulder: AROM: Flexion 160deg increase nW, abd 155deg increase NW, functional ER C3 increase NW aberrant, functional IR L3 mild increase nW. PROM: flexion: Close to full ROM with mild increase NW at end ranges. MMT: LUE: 4+/5 throughout; RUE: elbow 4+/5; shoulder: flexion4/5 increase NW, abd 4/5 increase NW, ER 4-/5 increase NW IR 4/5 increase NW. Special Tests R Shoulder Drop Sign - IS Test: Negative R Shoulder Empty Can - SS: Positive R Shoulder Belly Press - SupScap: Positive R Shoulder Neer - Impingement: Positive R Shoulder Reilly Lukas - Impingement: Positive R Shoulder Speeds Test - Labrum/Biceps: Positive Balance/Special Test Scores Quick DASH Score: 29.5450 Goals Goal 1:: LTG: Pt. to be I with HEP for R shoulder and Goal Time Frame: 4-6 Weeks Goal 2:: STG: Pt. to sleep throughout the night without increase in symptoms. Goal Time Frame: 2-4 Weeks Goal 3:: LTG: Pt. to have increased R shoulder strength by 1/2 grade throughout. Goal Time Frame: 4-6 Weeks Goal 4:: LTG: pt. to have increased R shoulder ROM to full without increase in symptoms. Goal Time Frame: 4-6 Weeks Rehabilitation Potential Physical Therapy Diagnosis: Pt. has signs and symptoms consistent with R RTC tendinopathy. Pt. has loss of active motion of R shoulder, marked weakness as well. She does have some neck stiffness, but no marked radicular symptoms with special testing this date. Pt. would benefit from PT to address the above limitations. Rehabilitation Potential: Good Anticipated Interventions Patient/Client Instruction: Educate patient on: Condition, Plan of Care, Risk Factors and Benefits of Fitness Program For the Purpose of:: To facilitate caregiver knowledge, To improve self management, To prevent re-injury, To improve ability to perform tasks related to life management and To improve tolerance to ADL's Therapeutic Exercise to Include: Strength training, Power training, Body mechanics, Postural training, Flexibilty training, Passive ROM, Active ROM, García Exercises and Scapular Strength/Stabilization For the Purpose of:: To decrease pain, To increase ROM, To improve nutrient delivery to tissue, To increase oxygenation perfusion, To improve muscle performance and motor function, To improve ability to perform ADL's, To increase tolerance to activity/condition/position, To improve gait and locomotor fu nctions, To improve health of tissue, To decrease soft tissue restriction and To increase flexibility/ROM Manual Therapy Techniques to Include: Mobilization For the Purpose of:: To decrease pain, To increase ROM, To improve nutrient delivery to tissue and To increase oxygenation perfusion Intermittent cervical traction: Yes For the Purpose of:: To decrease pain, To decrease swelling/inflammation and To increase ROM Text: Thank you for the opportunity to evaluate your patient. For Medicare and Medicare HMO plans, please review the plan of care and approve it. It will need to be FAXED BACK to us at [phone] for Medicare purposes. For Medicare only, by signing this I certify the plan of care. Please let me know if there are questions or concerns regarding this plan of care. Physician Signature: Date:
--- NOTE | 2023-03-08 07:41 | HP.PTDCSUM ---
Discharge Summary D/C summary: It has been my pleasure to treat LIV DEWEY referred by Dr. Alon Auguste MD, with the diagnosis of R RTC tendinopathy for a total of 6 visit(s). Discharge Date: 03/07/23 Please see the following information for a summary of their discharge status. Subjective Subjective: Pt. reports 1/10 pain at rest, but 3-4/10 pain with movement of her shoulders and neck. Pt. reports increased pain with driving as well. Pt. feels like she has got worse. Pain Neck: Pain Intensity (Out of 10): 1 R shoulder: Pain Intensity (Out of 10): 1 Overall Improvement % Improvement: 0 Objective Objective/Function: AROM: R shoulder: flexion 150deg increase NW, abd 140 deg increase NW, functional ER C2 increase NW, functional IR L 3 increase NW. CERVICAL SPINE: flexion min loss increase NW, ext mod loss increase NW, rotation mod loss bilat increase NW, SB mod loss increase NW bilat. MMT: RUE: wrist and elbow 5-/5 throughout. R shoulder: flexion 4/5 increase NW, abd 4/5 increase NW, ext 5/5 NE, ER 4/5 increase NW IR 4+/5 NE. Pt. reports having increased pain with all PT activities. She has not had any relief with stretching, modalities at this point in time. She had increased pain in neck with trials of traction. Due to Pt not having a + result I am DCing back to physician at this point in time. Goals Goal 1:: LTG: Pt. to be I with HEP for R shoulder and neck Goal Progress: Progressing Goal 2:: STG: Pt. to sleep throughout the night without increase in symptoms. Goal Progress: Goal Met Goal 3:: LTG: Pt. to have increased R shoulder strength by 1/2 grade throughout. Goal Progress: Progressing Goal 4:: LTG: pt. to have increased R shoulder ROM to full without increase in symptoms. Goal Progress: Not Progressing Plan Plan: Pt. to be DC back to physician at this point in time. D/C Information Discharge Comments: Pt. will be DC from PT at this point in time as pt. felt like PT was making her worse. d/c sentence: If there are questions or concerns regarding this patient's physical therapy, please feel free to call me at [phone]. Thank you for the referral of this patient. Sincerely, Brady Barcenas, DPT Balance/Gait/Functional tests Balance/Special Test Scores Quick DASH Score: 29.5432
== END 2023-03-07 19:00 | disposition home or self-care (01) ==
LOC: PT 16:30
PROVIDERS: PCP Family Medicine; Referring Provider Orthopaedic Surgery Hand Surgery; Visit Provider Orthopaedic Surgery Hand Surgery
DX: M67.911 Unspecified disorder of synovium and tendon, right shoulder (principal)
CPT/HCPCS: 97035; 97110; 97140; 97161; 97164

== ENCOUNTER → 2023-03-30 | Outpatient (CLI) | payer MEDICARE, OTHER, SELFPAY ==
[2023-03-30 10:25] LABS: Absolute Lymphocyte Count 1.59 X10^3/uL (0.83-4.51); Basophil# 0.06 X10^3/uL; Basophil% 1.1 % (0-1); Eosinophil# 0.33 X10^3/uL; Eosinophils% 6.1 % (0-5); Hematocrit 31.3 % (37-47); Hemoglobin 10.3 g/dL (12.0-15.0); Lymphocyte # 1.59 X10^3/ul (0.83-4.51); Lymphocyte % 29.4 % (19-41); Mean Corp Hgb Conc 32.9 g/dL (32-36); Mean Corpuscular Hgb 30.7 pg (27.0-32.0); Mean Corpuscular Volume 93.4 fL (81-99); Mean Platelet Vol. 9.9 fl (6.2-12.0); Monocyte# 0.39 X10^3/uL; Monocyte% 7.2 % (0-10); NRBC Flagged by Analyzer 0 % (0-5); Neutrophil # 3.02 X10^3/uL (2.7-7.7); Neutrophil % 55.8 % (47-70); Platelet Count 245 K/mm3 (150-450); RBC Distribution Width CV 12.9 % (11.6-14.6); Red Blood Count 3.35 M/mm3 (4.2-5.4); White Blood Count 5.4 K/mm3 (4.4-11.0)
[2023-03-30 10:54] LABS: Vitamin B12 679 pg/mL (211-911)
[2023-03-30 11:01] LABS: ALB/GLOB Ratio 1.1 RATIO (0.9-2.4); AST(SGOT) 14 U/L (15-37); Alanine Aminotransfer ALT/SGPT 18 U/L (13-56); Albumin, Serum 3.6 g/dL (3.2-5.0); Alkaline Phosphatase 109 U/L (45-117); Anion Gap 11 (5-15); BUN 33 mg/dL (7-18); BUN/Creat Ratio 17.4 RATIO (10-20); Calcium,Total 9.3 mg/dL (8.5-10.1); Chloride 103 mmol/L (98-107); Cholesterol 133 mg/dL (200); EST Glomerular Filtration Rate 28 mL/min (>60); Est Glom Filt Rate - Afr Amer 33 mL/min (>60); Ferritin 105 ng/mL (8-252); Globulin 3.4 g/dL (2.2-4.2); Glucose 95 mg/dL (74-106); High Density Lipoprotein 50 mg/dL; Sodium Level 135 mmol/L (136-145); Triglycerides 158 mg/dL; Very Low Density Lipoprotein 32 mg/dL (5-40)
[2023-04-03 12:07] LABS: Hemoglobin A1c 7.2 % (3.8-5.6)
== END | disposition home or self-care (01) ==
LOC: LAB 09:13
PROVIDERS: PCP Family Medicine; Referring Provider Family Medicine; Visit Provider Family Medicine
DX: I12.9 Hypertensive chronic kidney disease with stage 1 through stage 4 chronic kidney disease, or unspecified chronic kidney disease (principal); E11.21 Type 2 diabetes mellitus with diabetic nephropathy; E11.22 Type 2 diabetes mellitus with diabetic chronic kidney disease; N18.4 Chronic kidney disease, stage 4 (severe); D63.1 Anemia in chronic kidney disease; E78.5 Hyperlipidemia, unspecified
CPT/HCPCS: 36415; 80053; 80061; 82607; 82728; 83036; 85025

== ENCOUNTER → 2023-04-03 | Outpatient (CLI) | payer MEDICARE, OTHER, SELFPAY ==
--- NOTE | 2023-04-03 10:10 | MRI_ITS ---
EXAM: MR RIGHT UPPER EXTREMITY WITHOUT INTRAVENOUS CONTRAST, SHOULDER CLINICAL INDICATION: ROTATOR CUFF IMPINGEMENT, OSTEOARTHRITIS TECHNIQUE: Multiplanar and multisequence MR images of the right shoulder without intravenous contrast. COMPARISON: None FINDINGS: TENDONS: SUPRASPINATUS: At least moderate supraspinatus tendinosis. INFRASPINATUS: At least moderate infraspinatus tendinosis. SUBSCAPULARIS: Unremarkable. Intact. TERES MINOR: Unremarkable. Intact. BICEPS BRACHII, LONG HEAD: Long head of biceps tendon is not seen within the bicipital groove and may be torn and retracted. LIGAMENTS: GLENOHUMERAL: Unremarkable. Intact. MUSCLES: Moderate atrophy of the teres minor muscle is probably idiopathic or could also be due to chronic nerve impingement. FLUID: No joint effusion. At least moderate fluid with synovitis within the subacromial/subdeltoid bursa. CARTILAGE: Unremarkable. Articular cartilage intact. GLENOID LABRUM: Unremarkable. Intact, limited evaluation on non-arthrographic exam. BONES/JOINTS: Low-grade interstitial type tear involving the supraspinatus myotendinous junction. This type of tear is likely to be hidden or concealed at the time of arthroscopy. Severe hypertrophic degenerative changes of the acromioclavicular joint with moderate mass effect on the underlying soft tissues. Type II acromion with evidence of a prominent subacromial enthesophyte anteriorly. No os acromiale. Superior labral degeneration with possible degenerative tearing. No fracture. No abnormal bone marrow signal. OTHER SOFT TISSUES: Unremarkable. No rotator interval edema. MRI/Upper Ext Joint Only(Routine) IMPRESSION: 1. Low-grade interstitial type tear involving the supraspinatus myotendinous junction. This type of tear is likely to be hidden or concealed at the time of arthroscopy. 2. Prominent subacromial enthesophyte anteriorly. 3. Long head of the biceps tendon is suspected in the torn retracted as it is not seen within the bicipital groove. 4. Superior labral degeneration with possible degenerative tearing. 5. Subacromial/subdeltoid bursitis. Electronically Signed: Simon Kraft MD at 21:56 EDT Reading Location ID and State: [facility] / [place] Tel , Service support ,
== END | disposition home or self-care (01) ==
LOC: MRI 10:05
PROVIDERS: PCP Family Medicine
DX: M75.41 Impingement syndrome of right shoulder (principal); M19.011 Primary osteoarthritis, right shoulder
CPT/HCPCS: 73221

== ENCOUNTER → 2023-04-20 | Outpatient (CLI) | payer MEDICARE, OTHER, SELFPAY ==
[2023-04-25 16:23] LABS: HPV Reflexed? NOT INDICATED
== END | disposition home or self-care (01) ==
LOC: LABSPEC 14:17
PROVIDERS: PCP Family Medicine; Referring Provider Obstetrics & Gynecology; Visit Provider Obstetrics & Gynecology
DX: Z12.4 Encounter for screening for malignant neoplasm of cervix (principal)
CPT/HCPCS: 88175; G0145

== ENCOUNTER → 2023-05-02 | Outpatient (CLI) | payer MEDICARE, OTHER, SELFPAY ==
--- NOTE | 2023-05-02 08:36 | BI_ITS ---
MAMMOGRAPHY - BILATERAL SCREENING REASON FOR EXAM: Female, 72 years old. Routine annual screening examination. PERTINENT HISTORY: Grandmother with breast cancer. TECHNIQUE: Digital bilateral breast guy (3D mammographic acquisition) in the CC and MLO projections. 2-D mediolateral oblique (MLO) and craniocaudad (CC) views of both breasts were obtained. CAD: Full Field Digital Mammography with Computer Added Detection was performed. COMPARISON: Comparison is made with prior study dated April 28, 2022 and April 26, 2021. FINDINGS: Breast Composition: The breasts are heterogeneously dense, which may obscure small masses. There are no dominant masses or suspicious calcifications. Stable small benign appearing bilateral axillary lymph nodes. Stable scattered bilateral calcifications worse on the left side. A tissue clip marker is once again seen in the upper slightly lateral aspect of the left breast. No other significant abnormalities are identified. There has been no significant change since the prior study. BI/SCRN MAMM (CAD)W/GUY BILAT IMPRESSION: Stable bilateral screening mammogram. Yearly follow-up mammogram recommended. (A) ASSESSMENT CATEGORY: BIRADS Category 2: Benign. A letter regarding these results will be sent to the patient by the facility within 30 days. Approximately 10% of breast cancers are not detected by mammography. A normal mammogram should not delay biopsy of a clinically suspicious abnormality. [id number] Electronically Signed: Mitchel Mehta MD at 9:58 EDT ,
== END | disposition home or self-care (01) ==
LOC: OPBI 08:35
PROVIDERS: PCP Family Medicine; Referring Provider Obstetrics & Gynecology; Visit Provider Obstetrics & Gynecology
DX: Z12.31 Encounter for screening mammogram for malignant neoplasm of breast (principal)
CPT/HCPCS: 77063; 77067

== ENCOUNTER → 2023-05-05 | Outpatient (CLI) | payer MEDICARE, OTHER, SELFPAY ==
--- NOTE | 2023-05-05 08:05 | CT_ITS ---
STUDY: CT MAXILLOFACIAL SINUSES REASON FOR EXAM: Female, 72 years old. SINUS PAIN RADIATION DOSAGE (If Supplied By Facility): CTDIvol = ( 29.38 ) mGy, DLP = ( 437.27 ) mGycm TECHNIQUE: The patient was scanned in a multi detector CT scanner. High resolution axial imaging was performed without the administration of intravenous contrast material. Sagittal and coronal images were reconstructed. Individualized dose optimization techniques were used for this CT. COMPARISON: None. FINDINGS: FRONTAL SINUSES: Normal aeration, without mucosal inflammatory disease. ETHMOIDAL SINUSES: Normal aeration, without mucosal inflammatory disease. MAXILLARY SINUSES: Normal aeration, without mucosal inflammatory disease. SPHENOIDAL SINUSES: Normal aeration, without mucosal inflammatory disease. There is patency of the bilateral maxillary infundibuli with normal uncinate processes, ethmoid bullae, and hiatus semilunaris. Paradoxical curvature of the anterior aspect of the right middle turbinate. Normal bilateral inferior turbinates. There is a left sided nasal septal deviation, but without a nasal septal spur. There is patency of the bilateral nasal airways. The visualized osseous structures are normal. The visualized bilateral orbital contents are normal. CT/Sinus/Facial Bone IMPRESSION: No CT evidence of acute or chronic sinusitis. Patent ostiomeatal units bilaterally. Paradoxical curvature of the anterior aspect of the right middle turbinate. Slight deviation of nasal septum to the left. Electronically Signed: Esau Bueno MD at 22:36 EDT ,
== END | disposition home or self-care (01) ==
LOC: CT 08:04
PROVIDERS: PCP Family Medicine; Referring Provider Family Medicine; Visit Provider Family Medicine
DX: J32.9 Chronic sinusitis, unspecified (principal)
CPT/HCPCS: 70486

== ENCOUNTER → 2024-04-18 | Outpatient (CLI) | payer MEDICARE, OTHER, SELFPAY | END | disposition home or self-care (01) | LOC: LAB 16:52 | PROVIDERS: PCP Nurse Practitioner; Referring Provider Nurse Practitioner; Visit Provider Nurse Practitioner | DX: N39.0 Urinary tract infection, site not specified (principal) | CPT/HCPCS: 87077; 87086; 87088; 87186 ==

== ENCOUNTER → 2024-04-29 | Outpatient (CLI) | payer MEDICARE, OTHER, SELFPAY ==
[2024-05-05 11:08] LABS: HPV APTIMA, High Risk Negative (Negative)
== END | disposition home or self-care (01) ==
LOC: LABSPEC 16:56
PROVIDERS: PCP Nurse Practitioner; Referring Provider Obstetrics & Gynecology; Visit Provider Obstetrics & Gynecology
DX: Z12.4 Encounter for screening for malignant neoplasm of cervix (principal)
CPT/HCPCS: 87624; 88175; G0145

== ENCOUNTER → 2024-05-01 | Outpatient (CLI) | payer MEDICARE, OTHER, SELFPAY ==
[2024-05-06 13:08] LABS: Pancreatic Elastase, Fecal 569 (>200)
== END | disposition home or self-care (01) ==
PROVIDERS: PCP Nurse Practitioner; Referring Provider Nurse Practitioner; Visit Provider Nurse Practitioner
DX: K58.9 Irritable bowel syndrome, unspecified (principal); F98.1 Encopresis not due to a substance or known physiological condition
CPT/HCPCS: 82653; 87177; 87209

== ENCOUNTER → 2024-05-05 | Outpatient (CLI) | payer MEDICARE, OTHER, SELFPAY ==
--- NOTE | 2024-05-05 13:14 | BI_ITS ---
MAMMOGRAPHY - BILATERAL SCREENING 3-D TOMOSYNTHESIS REASON FOR EXAM: Female, 73 years old. screening PERTINENT HISTORY: No significant family history. TECHNIQUE: 2-D mammograms and 3-D Tomosynthesis of the breast (s) were performed. CAD was performed. COMPARISON: 05/02/2023 FINDINGS: The breast composition is heterogeneously dense that can obscure small breast masses. Scattered benign calcifications are seen. No dense spiculated masses or suspicious microcalcifications are identified. No architectural distortion is identified. There is no skin thickening or retraction. There has been no significant change since the prior study. No change in bilateral benign rodlike calcifications. BI/SCRN MAMM (CAD)W/GUY BILAT IMPRESSION: No mammographic signs of malignancy. Routine yearly mammograms recommended. ASSESSMENT CATEGORY: BIRADS Category 2: Benign. A letter regarding these results will be sent to the patient by the facility within 30 days. FOLLOW UP RECOMMENDATION: Yearly follow up mammogram recommended. (A) Approximately 10% of breast cancers are not detected by mammography. A normal mammogram should not delay biopsy of a clinically suspicious abnormality. Electronically Signed: Esau Bueno MD at 21:12 EDT ,
== END | disposition home or self-care (01) ==
LOC: OPBI 13:14
PROVIDERS: PCP Nurse Practitioner; Referring Provider Obstetrics & Gynecology; Visit Provider Obstetrics & Gynecology
DX: Z12.31 Encounter for screening mammogram for malignant neoplasm of breast (principal)
CPT/HCPCS: 77063; 77067

== ENCOUNTER → 2024-05-06 | Outpatient (CLI) | payer MEDICARE, OTHER, SELFPAY ==
[2024-05-06 10:28] LABS: Mucous, Urine 0 SEEN /hpf (<or=2+); Red Blood Cells-Urine 0 SEEN /hpf (0-5)
[2024-05-06 12:12] LABS: Color, Urine Yellow (Yellow); Glucose, Dipstick Normal (Normal); Ketone-Dipstick Negative (Negative); Leukocyte Esterase-Dipstick 25 /ul (Negative); Nitrite-Dipstick Negative (Negative); Occult Blood-Urine Negative /ul (Negative); Protein-Dipstick 15 mg/dl (Negative); Specific Gravity, Urine 1.015 (1.002-1.030); Urine Bilirubin Dipstick Negative (Negative); Urine Clarity Sl. Cloudy (Clear); Urine Urobilinogen Normal (Normal)
[2024-05-06 12:36] LABS: Squamous Epithelial Cells - UA 0-5 SEEN /hpf (5-10); White Blood Cells 0-5 SEEN /hpf (0-5)
[2024-05-06 12:37] LABS: Bacteria 1+ /hpf (None Seen)
== END | disposition home or self-care (01) ==
LOC: LABSPEC 10:22
PROVIDERS: PCP Nurse Practitioner; Referring Provider Nurse Practitioner; Visit Provider Nurse Practitioner
DX: N39.41 Urge incontinence (principal)
CPT/HCPCS: 81001; 87077; 87086; 87088; 87186

== ENCOUNTER → 2024-06-05 | Outpatient (CLI) | payer MEDICARE, OTHER, SELFPAY ==
[2024-06-13 01:08] LABS: Beef <0.10 kU/L (Class 0); Chocolate <0.10 kU/L (Class 0); Codfish <0.10 kU/L (Class 0); Corn <0.10 kU/L (Class 0); Egg, Whole <0.10 kU/L (Class 0); Milk (Cow) 0.27 kU/L (Class 0/I); Mussels <0.10 kU/L (Class 0); Peanut <0.10 kU/L (Class 0); Pork <0.10 kU/L (Class 0); Salmon <0.10 kU/L (Class 0); Shrimp <0.10 kU/L (Class 0); Soybean <0.10 kU/L (Class 0); Tuna <0.10 kU/L (Class 0); Wheat <0.10 kU/L (Class 0)
== END | disposition home or self-care (01) ==
LOC: MTLAB 15:56
PROVIDERS: PCP Nurse Practitioner
DX: K30 Functional dyspepsia (principal); K58.0 Irritable bowel syndrome with diarrhea
CPT/HCPCS: 36415; 86003; 86005

== ENCOUNTER → 2024-06-19 | Outpatient (CLI) | payer MEDICARE, OTHER, SELFPAY ==
--- NOTE | 2024-06-19 13:22 | NM_ITS ---
CLINICAL: 73-year-old female with history of clinical gastroparesis. SEMI-SOLID PHASE 99m Tc SULFUR COLLOID GASTRIC EMPTYING STUDY COMPARISON: None available FINDINGS: The patient was administered 1.0 mCi of 99m Tc sulfur colloid mixed with oatmeal and consumed per os. Image acquisitions in the anterior-posterior projections were obtained for 60 minutes. There is prompt visualization of the stomach. There is no gastroesophageal reflux identified. The T ? linear fit was calculated to be 34.25 minutes, (Normal: 12-56 minutes). NM/Gastric Emptying Study IMPRESSION: 1. NORMAL 99m Tc sulfur colloid semi-solid phase (oatmeal) gastric emptying imaging examination. A. There is normal and preserved semi-solid phase gastric emptying compared to normal controls. (Guzman et al, J Nucl Med Tech 38: 186, 2010). Electronically Signed: Esau Castro DO at 9:30 EST ,
== END | disposition home or self-care (01) ==
LOC: NM 13:22
PROVIDERS: PCP Nurse Practitioner
DX: K30 Functional dyspepsia (principal); K58.0 Irritable bowel syndrome with diarrhea
CPT/HCPCS: 78264; A9541

== ENCOUNTER 2024-10-13 10:11 | Outpatient (CLI) | payer MEDICARE, OTHER, SELFPAY ==
--- NOTE | 2024-10-13 10:13 | US_ITS ---
EXAM: US Abdomen Complete CLINICAL INDICATION: TECHNIQUE: Real-time ultrasound of the abdomen with image documentation. COMPARISON: No relevant prior studies available. FINDINGS: LIVER: Liver measures 14.8 cm. Fatty infiltration of the liver. No intrahepatic bile duct dilation. GALLBLADDER: Gallbladder is surgically absent. COMMON BILE DUCT: Unremarkable as visualized. No stones. No dilation. Common bile duct measures 0.40 cm in diameter. PANCREAS: Unremarkable as visualized. KIDNEYS: Unremarkable. No stones. No hydronephrosis. The right kidney measures 9.6 x 2.4 x 2.9 cm. The left kidney measures 9.4 x 4.3 x 4.3 cm. SPLEEN: Spleen measures up to 10.0 cm. AORTA: Unremarkable. No aneurysm. INFERIOR VENA CAVA: Unremarkable. US/Abdomen Complete IMPRESSION: Fatty infiltration of the liver. Reading Location: [facility]
== END 2024-10-13 23:59 | disposition home or self-care (01) ==
LOC: US 10:12
PROVIDERS: Referring Provider Nurse Practitioner Acute Care; Visit Provider Nurse Practitioner Acute Care
DX: R10.13 Epigastric pain (principal); R10.12 Left upper quadrant pain; R15.9 Full incontinence of feces; R15.2 Fecal urgency; R11.0 Nausea; K58.0 Irritable bowel syndrome with diarrhea
CPT/HCPCS: 76700

== ENCOUNTER 2024-10-23 07:35 | Day surgery (SDC) | payer MEDICARE, OTHER, SELFPAY ==
--- NOTE | 2024-10-21 15:32 | PAT.ANE_ITS ---
Pre-Assessment Diagnosis/Proposed Procedure Planned Operative Procedure(s): EGD Anesthesia History Anesthesia History - soft work wrapper layer and examiner: Anesthesia History - soft work wrapper layer and examiner Hx Hospitalization No 10/21/24 09:43 Any Problems With Anesthesia No 10/21/24 09:43 Cholinesterase deficiency No 10/21/24 09:43 You/Your Family Experience No 10/21/24 09:43 fever (hyperthermia) with Relationship Recent Exposure to Contagious Disease Does patient have nerve No 10/21/24 09:43 stimulator Patient instructed to have device shut off --Does patient have Pacemaker or ICD? When Was Last Pacemaker Check QUESTION #4 FULL TEXT: You/Your Family Experience fever (hyperthermia) with Anesthesia Last Oral Intake Last Oral intake: Last Oral Intake NPO since Meds taken in AM with sips of water? Meds patient instructed to take am of surgery PONV PONV - soft work wrapper layer and examiner: PONV - soft work wrapper layer and examiner Female Yes 10/21/24 09:43 HX of Motion Sickness Yes 10/21/24 09:43 HX of N/V After Surgery No 10/21/24 09:43 Non-Smoker Yes 10/21/24 09:43 Duration of Surgery greater No 10/21/24 09:43 than 60 minutes Number of Risk Factors 3 10/21/24 09:43 PONV Score Moderate Risk 10/21/24 09:43 Height & Weight Height & Weight: Anesthesia: Height & Weight Height 5 ft 1 in 08/13/24 13:58 Respiratory Assessment Respiratory Assessment - soft work wrapper layer and examiner: Respiratory Tract Infection Hx - soft work wrapper layer and examiner Hx Respiratory Tract Infection No 10/21/24 09:43 STOP Sleep Apnea STOP Sleep Apnea - soft work wrapper layer and examiner: STOP Sleep Apnea - soft work wrapper layer and examiner Hx Hypertension Yes: CONTROLLED ON MED 10/21/24 09:43 Hx Sleep Apnea Yes: NON-COMPLIANT 10/21/24 09:43 CPAP No 10/21/24 09:43 BIPAP No 10/21/24 09:43 Do you snore loudly (louder than talking or can be heard Do you often feel tired/ fatigued/ sleepy during daytime? Has anyone observed you stop breathing during sleep? STOP Results Positive 10/21/24 09:43 QUESTION #5 FULL TEXT : Do you snore loudly (louder than talking or can be heard through closed doors)? Tobacco Use History Tobacco Use History - soft work wrapper layer and examiner: Tobacco Use History - soft work wrapper layer and examiner Tobacco Use Smoking Status Never smoker 10/21/24 09:43 Hx Tobacco Use No 10/21/24 09:43 Years Smoking Packs Smoked per Day Smoking Cessation Date was within the last 15 years Hx Smoking Cessation Date Hx Smoking Cessation Counseling Hematologic Medial History Hematologic Hx - soft work wrapper layer and examiner: Hematologic Medical Hx - prop drawer Hx of Blood Transfusion No 10/21/24 09:43 Hx of Transfusion in last 3 No 10/21/24 09:43 Months Date of Last Transfusion (if within last 3 months) Ever experience any problems No 10/21/24 09:43 with transfusion(s)? Specify any problems Hx of Preganancy in last 3 No 10/21/24 09:43 Months Nurse Filling Out Transfusion VCHRISTIN 10/21/24 09:43 & Questions: Date: 10/21/24 10/21/24 09:43 Time: 09:45 10/21/24 09:43 Patient unable to answer at this time (ie. confused, unrespo /Reproduction History /Reproductive History - soft work wrapper layer and examiner: /Reproductive Hx- soft work wrapper layer and examiner Hx Now No 10/21/24 09:43 Gestational Age (in weeks): EDC: Hx Hx Para Hx Section SAB No 10/21/24 09:43 [facility] Medical History (Updated 10/21/24 @ 09:47 by Randee Cooper) Wears glasses History of Clostridium difficile infection Post-menopausal Cancer Diabetes History of renal disease Anemia High cholesterol Back pain Dietary restriction Difficulty swallowing History of IBS History of diverticulitis Non-smoker Chronic cough History of edema History of echocardiogram History of stress test Cardiology follow-up encounter History of trigger finger Osteopenia determined by x-ray Psoriatic arthritis Diabetes type 2, controlled Arthritis History of melanoma Sleep apnea GERD (gastroesophageal reflux disease) IBS (irritable bowel syndrome) Asthma Hyperlipemia Hypertension Home Medications ?Medication ?Instructions ?Recorded ?Last Taken ?Type indapamide 2.5 mg tablet 2.5 mg PO QAM #90 tabs 08/21 Unknown Rx apremilast 30 mg tablet (Otezla) 30 mg PO QAM AND QPM 04/04/21 Unknown History atorvastatin 20 mg tablet (Lipitor) 20 mg PO DAILY Unknown History Held on 10/21/24. Instructions: RAN OUT OF THIS MED, pioglitazone 15 mg tablet 15 mg PO DAILY 04/04/21 Unkn own History cholecalciferol (vitamin D3) 50 50 mcg PO DAILY Unknown History mcg (2,000 unit) capsule cinnamon bark 500 mg capsule 500 mg PO DAILY 04/18/22 Unknown History mecobalamin (vitamin B12) 1,000 1,000 mcg PO DAILY Unknown History mcg chewable tablet lisinopril 2.5 mg tablet 2.5 mg PO BID 01/10/24 Unkno wn History metoprolol tartrate 25 mg tablet 25 mg PO BID 01/10/24 Unknown History tizanidine 2 mg tablet 2 mg PO BID PRN muscle spast icity 01/10/24 Unknown History nystatin 100,000 unit/gram topical 1 applic topical BI D #45 ea 04/29/24 Unknown Rx powder (Nystop) tramadol 50 mg tablet 50 mg PO QHS 04/29/24 Unknow n History colesevelam 625 mg tablet (WelChol) 1,875 mg (3 x 625 mg) PO .before 08/13/24 Unknown Rx first meal 90 days #300 tabs omeprazole 40 mg capsule,delayed 40 mg PO BID 90 days #180 caps 08/13/24 Unknown Rx release glipizide 5 mg tablet, extended 10 mg PO BID 10/21/24 Unknown History release 24 hr ipratropium bromide 42 mcg (0.06 2 spray intranasal DA MARILYN 10/21/24 Unknown History %) nasal spray Allergy/AdvReac Type Severity Reaction Status Date / Time latex Allergy Severe OTHER Verified 10/21/24 09:23 cat dander Allergy Mild itching Verified 08/13/24 13:49 mold Allergy Mild Other Verified 10/21/24 09:23 Seasonal Allergies: Uncoded Allergy Unknown Other Verified 10/21/24 09:23 (environmental) adhesive Allergy Rash Verified 10/21/24 09:23 amoxicillin (From Augmentin) Allergy Unknown Verified 10/21/24 09:23 clavulanic acid (From Allergy Unknown Verified 10/21/24 09:23 Augmentin) Corticosteroids Allergy NEEDS Verified 10/21/24 09:23 (Glucocorticoids) FOLLOW-UP Penicillins (PCN) Allergy Other Verified 10/21/24 09:23 Sulfa (Sulfonamide Allergy Hives Verified 10/21/24 09:23 Antibiotics) Family History Mother Diabetes Heart disease Hypertension Father Heart disease Cancer skin Grandfather Myocardial infarction 60s or 70s CVA (cerebral vascular accident) Surgical History (Updated 10/21/24 @ 09:43 by Randee Cooper) Hx of foot surgery H/O shoulder surgery S/P hernia repair S/P cholecystectomy Status post left foot surgery hand and elbow surgery History of carpal tunnel release History of cataract H/O arthroscopic knee surgery History of appendectomy Social History household members: none housing: house number of children: 0 current occupational status: retired pets and animals: Yes pets and animals: cat(s) Smoking Status: Never smoker alcohol intake: never substance use type: does not use caffeine: No what type of physical activity do you participate in: none seatbelt use: always do you feel safe at home: No (someone coming into house when she not home) additional social history: Works seasonally at [employer] Audit: Pertinent Findings Pertinent Findings EKG Perinent findings: EKG on 04/29: SR with PACs, inferior PR age undetermined, anterior PR age undetermined Echo (EF%) pertinent findings: 65% on 12/2021 Current Visit Impressions Current Visit Impressions: HTN, HL, GERD., SAVI/CPAP, T2DM, fibromyalgia Recommendation Anesthesia Recommendation Anesthesia recommendation: OPTIMIZED for anesthesia
[2024-10-23] VITALS (9 sets, daily range): BP systolic 112–158; BP diastolic 50–73; PULSE 70–73; RESP 16–18; TEMP 36.6–37.2; O2SAT 93–98; BMI 38.7
--- NOTE | 2024-10-23 08:28 | HP.PCM_ITS ---
HPI - General General Date of Admission: 10/23/24 Date of Service: 10/23/24 Chief Complaint: abdominal pain, bloating and diarrhea HPI Narrative LIV DEWEY, is a 73 F who [id number] who presents to the office today for establishment with [facility] for complaints of urge incontinence with diarrhea and nausea after eating with early satiety. Differential diagnoses include: delayed gastric emptying, gastric outlet obstruction, EPI, IBS, IBD, bile acid malabsorption s/p cholecystectomy, infectious diarrhea s/p multiple antibiotic therapies. Discussed plan with her. * blood for food allergies, IBS/D, inflammatory, thyroid markers * stool for enzymes, inflammatory, enteric markers * GET for emptying time * abd/pelvis CT w/wo contrast to evaluate inflammatory status of colon and known diverticula * call with results * office follow-up in 3 months * consider EGD following GET * consider colonoscopy after IBS/D panel results or if visible blood in stool Elastase normal 05/01/2024 Food Allergen panel 06/05/2024 (corn 0.27) GES normal 06/19/2024 - reports she goes all day without being hungry - weight is stable - nausea is intermittent - can experience abdominal pain - LUQ - nausea and pain get worse with PO intake - reports she can also have left sided pain with walking and has pain when she has not eating in a long time - denies any HB - symptoms well managed with Omeprazole 20mg BID - she is diabetic - states LUQ pain has been going on for years - states she saw rheumatology in the past who recommended she see a specialist for fibromyalgia but got upset with the office and never went back Barium Swallow 06/14/2021 Narrowing at the level of the gastroesophageal junction with trapping of the 12 mm tablet of barium. - she c/o dysphagia in the upper esophagus - intermittent - Colon & EGD in 2020 - per patient the EGD revealed gastric food retention - she has been diabetic since 2012 - denies any emesis - no change in medications - she has never had pancreatitis - non-smoker - denies taking any NSAIDS - denies any alcohol use - denies any caffeine intake - she does not like vegetables - does not consume much fiber - 50-60 ounces of water daily - she is not taking any fiber supplements - falls - reports she has a fear of people coming in her house so has stuff piled in front of the back door that she has to step over stuff - she got stuck 04/04/2024 and reports she yelled for 2h and no one came to help her - c/o some difficulty breathing when she lays down - will f/u with PCP - denies any h/o shingles [facility] Medical History Wears glasses History of Clostridium difficile infection Post-menopausal Cancer Diabetes History of renal disease Anemia High cholesterol Back pain Dietary restriction Difficulty swallowing History of IBS History of diverticulitis Non-smoker Chronic cough History of edema History of echocardiogram History of stress test Cardiology follow-up encounter History of trigger finger Osteopenia determined by x-ray Psoriatic arthritis Diabetes type 2, controlled Arthritis History of melanoma Sleep apnea GERD (gastroesophageal reflux disease) IBS (irritable bowel syndrome) Asthma Hyperlipemia Hypertension Home Medications ?Medication ?Instructions ?Recorded ?Last Taken ?Type indapamide 2.5 mg tablet 2.5 mg PO QAM #90 tabs 08/21 Unknown Rx apremilast 30 mg tablet (Otezla) 30 mg PO QAM AND QPM 04/04/21 Unknown History atorvastatin 20 mg tablet (Lipitor) 20 mg PO DAILY Unknown History Held on 10/21/24. Instructions: RAN OUT OF THIS MED, pioglitazone 15 mg tablet 15 mg PO DAILY 04/04/21 Unkn own History cholecalciferol (vitamin D3) 50 50 mcg PO DAILY Unknown History mcg (2,000 unit) capsule cinnamon bark 500 mg capsule 500 mg PO DAILY 04/18/22 Unknown History mecobalamin (vitamin B12) 1,000 1,000 mcg PO DAILY Unknown History mcg chewable tablet lisinopril 2.5 mg tablet 2.5 mg PO BID 01/10/24 Unkno wn History metoprolol tartrate 25 mg tablet 25 mg PO BID 01/10/24 10/23/24 07:00 History tizanidine 2 mg tablet 2 mg PO BID PRN muscle spast icity 01/10/24 Unknown History nystatin 100,000 unit/gram topical 1 applic topical BI D #45 ea 04/29/24 Unknown Rx powder (Nystop) tramadol 50 mg tablet 50 mg PO QHS 04/29/24 Unknow n History colesevelam 625 mg tablet (WelChol) 1,875 mg (3 x 625 mg) PO .before 08/13/24 Unknown Rx first meal 90 days #300 tabs omeprazole 40 mg capsule,delayed 40 mg PO BID 90 days #180 caps 08/13/24 Unknown Rx release glipizide 5 mg tablet, extended 10 mg PO BID 10/21/24 Unknown History release 24 hr ipratropium bromide 42 mcg (0.06 2 spray intranasal DA MARILYN 10/21/24 10/23/24 History %) nasal spray Allergy/AdvReac Type Severity Reaction Status Date / Time latex Allergy Severe OTHER Verified 10/21/24 09:23 cat dander Allergy Mild itching Verified 08/13/24 13:49 mold Allergy Mild Other Verified 10/21/24 09:23 Seasonal Allergies: Uncoded Allergy Unknown Other Verified 10/21/24 09:23 (environmental) adhesive Allergy Rash Verified 10/21/24 09:23 amoxicillin (From Augmentin) Allergy Unknown Verified 10/21/24 09:23 clavulanic acid (From Allergy Unknown Verified 10/21/24 09:23 Augmentin) Corticosteroids Allergy NEEDS Verified 10/21/24 09:23 (Glucocorticoids) FOLLOW-UP Penicillins (PCN) Allergy Other Verified 10/21/24 09:23 Sulfa (Sulfonamide Allergy Hives Verified 10/21/24 09:23 Antibiotics) Family History Mother Diabetes Heart disease Hypertension Father Heart disease Cancer skin Grandfather Myocardial infarction 60s or 70s CVA (cerebral vascular accident) Surgical History Hx of foot surgery H/O shoulder surgery S/P hernia repair S/P cholecystectomy Status post left foot surgery hand and elbow surgery History of carpal tunnel release History of cataract H/O arthroscopic knee surgery History of appendectomy Social History household members: none housing: house number of children: 0 current occupational status: retired pets and animals: Yes pets and animals: cat(s) Smoking Status: Never smoker alcohol intake: never substance use type: does not use caffeine: No what type of physical activity do you participate in: none seatbelt use: always do you feel safe at home: No (someone coming into house when she not home) additional social history: Works seasonally at [employer] ROS Constitutional Constitutional: Denies fatigue, fever(s), poor appetite, weight gain or weight loss Gastrointestinal Gastrointestinal: Denies belching, bloating, change in bowel habits, change in stool character, chewing difficulty, coffee ground emesis, constipation, cramp ing, diarrhea, dyspepsia, dysphagia, early satiety, excessive flatus, fecal incontinence, heartburn, hematemesis, hematochezia, hemorrhoids, loose stools, melena, nausea, odynophagia, rectal bleeding, tenesmus, vomiting or weight changes Vital Signs Vital Signs Vital Signs: 10/23/24 07:56 10/23/24 07:56 Temperature 98.4 F Temperature Source Temporal Pulse Rate 71 Respiratory Rate 16 Respiratory Pattern Normal Blood Pressure 158/66 H Blood Pressure Mean 96 Blood Pressure Source Monitor Blood Pressure Position Semi-Fowlers Blood Pressure Location Right Arm Pulse Ox 95 Oxygen Delivery Method Room Air Weight Weight: 205 lb 0.478 oz Body Mass Index (BMI) 38.7 Physical Exam Const alert, oriented x3, no apparent distress and healthy appearing General Appearance: cooperative GI normal to inspection, nondistended, normoactive bowel sounds, soft to palpation, non-tender and non-distended Percussion: normal to percussion Rectal Exam: deferred Assessment & Plan Assessment/Plan (1) Epigastric pain: (2) LUQ pain: (3) Nausea: (4) Fatigue: (5) Gastrointestinal discomfort: (6) Diarrhea: (7) Delayed gastric emptying: PLAN: Assessment and Plan Assessment and Plan (1) Incontinence of feces with fecal urgency: Status: Acute (2) Irritable bowel syndrome with diarrhea: Status: Acute (3) Nausea: Status: Acute (4) LUQ pain: Status: Acute (5) Epigastric pain: Status: Acute Orders: Orders Abdomen Complete Today K58.0 - Irritable bowel syndrome with diarrhea, R10.12 - Left upper quadrant pain, R10.13 - Epigastric pain, R11.0 - Nausea, R15.2 - Fecal urgency, R15.9 - Full incontinence of feces Amylase Today K58.0 - Irritable bowel syndrome with diarrhea, R10.12 - Left upper quadrant pain, R10.13 - Epigastric pain, R11.0 - Nausea, R15.2 - Fecal urgency, R15.9 - Full incontinence of feces Lipase Today K58.0 - Irritable bowel syndrome with diarrhea, R10.12 - Left upper quadrant pain, R10.13 - Epigastric pain, R11.0 - Nausea, R15.2 - Fecal urgency, R15.9 - Full incontinence of feces Calprotectin, Stool Today K58.0 - Irritable bowel syndrome with diarrhea, R10.12 - Left upper quadrant pain, R10.13 - Epigastric pain, R11.0 - Nausea, R15.2 - Fecal urgency, R15.9 - Full incontinence of feces CBC W/Diff, Automated Today D64.9 - Anemia, unspecified, K58.0 - Irritable bowel syndrome with diarrhea, R10.12 - Left upper quadrant pain, R10.13 - Epigastric pain, R11.0 - Nausea, R15.2 - Fecal urgency, R15.9 - Full incontinence of feces Medications: New omeprazole 40 mg PO BID 60 caps 3RF omeprazole 40 mg PO BID 90 days 180 caps 2RF colesevelam (WelChol) 1,875 mg (3 x 625 mg) PO .before first meal 90 days 300 tabs 1RF Discontinued omeprazole Discontinued Reason: Order Changed 20 mg PO DAILY Plan 73y/o female presents for follow-up of nausea, LUQ/epigastric pain and fecal incontinence. She reports having a BM QD-QOD, formed or soft with urgency and fecal incontinence. She discontinued probiotic due to causing increased frequency of stools. She has been unable to complete stool testing to to unpredictability of stools. CCX in 2022 and takes Welchol 625mg 3 tablets once a day and she does feel this helps with firming up stools. Stools are primarily after eating. I have recommended she adjust Welchol dosing from 3 every morning to before meals. I recommended 1 tablet before meals, but she reports she only eats one meal a day. She declines scheduling a colonoscopy to r/o microscopic colitis. She will do her best to complete stool testing (calprotectin). She complains of LUQ and epigastric pain which has been present for many years. Pain worsens with an empty stomach, worsens after eating and worsens with movement. She reports EGD performed in 2020 revealed retained gastric contents. GES performed 06/19/2024 was normal. She has been diabetic since 2012 and denies any h/o pancreatitis. I have recommended a gastroparesis diet and increase Omeprazole to 40mg BID. She does experience intermittent dysphagia and will schedule EGD. H/O abnormal Esophagram in 2020. We have discussed her LUQ pain is likely musculoskeletal, she declines following up with rheumatology. She will follow-up in the office in 3 months. Patient Instructions: 1. Increase Omeprazole to 40mg twice a day 2. EGD 3. ABD US 4. Colestipol either 3 before 1 meal daily or 1 before each meal if you consume 3 meals daily 5. Gastroparesis Diet 6. Complete stool testing - Fecal Calprotectin 7. Complete labs 8. F/U with PCP for c/o orthopnea
--- NOTE | 2024-10-23 08:29 | PCM.PRE.AN2 ---
ASA Classification* ASA Classification ASA Classification: 3 Assessment & Plan Anesthesia* Anesthesia Assessment Anesthesia Assessment: Discussed sedation and/or anesthesia options, risks, benefits, and alternatives with patient/parents/legal guardian/POA. Questions invited. The patient/parents/legal guardian/POA seems to understand and agrees to proceed with anesthesia plan. Reviewed the physical assessment, medical history, allergy history and patient home medications list prior to surgery/procedure/anesthetic and documented any changes. Performed airway and anesthesia risk assessments. Anesthesia Type Anesthesia Type: MAC History Source History Obtained from:: Patient and Chart Anesthesia Focused Assessment* Temperature: 98.4 F Pulse Rate: 71 Blood Pressure: 158/66 Respiratory Rate: 16 Pulse Ox: 95 Oxygen Delivery Method: Room Air Airway Assessment Mouth opens: >3 cm Mallampati Score: IV Teeth Condition: Caps/Crowns (Patient has a crown on molar. It is tight.) Neck Range of motion (ROM): Limited ROM (Somewhat decreased extension) Focused Labs Anesthesia Preop lab: CBC WBC 5.4 K/mm3 (4.4-11.0) 03/30/23 09:16 03/30/23 RBC 3.35 M/mm3 (4.2-5.4) L 03/30/23 09:16 03/30/23 Hgb 10.3 g/dL (12.0-15.0) L 03/30/23 09:16 03/30/23 Hct 31.3 % (37-47) L 03/30/23 09:16 03/30/23 Plt Count 245 K/mm3 (150-450) 03/30/23 09:16 03/30/23 CHEMISTRY Potassium 4.0 mmol/L (3.5-5.1) 03/30/23 09:16 03/30/23 Sodium 135 mmol/L (136-145) L 03/30/23 09:16 03/30/23 Magnesium 1.7 mg/dL (1.6-2.6) 03/03/19 09:38 03/03/19 Phosphorus 3.6 mg/dL (2.5-4.9) 03/03/19 09:38 03/03/19 BUN 33 mg/dL (7-18) H 03/30/23 09:16 03/30/23 Creatinine 1.90 mg/dL (0.55-1.02) H 03/30/23 09:16 03/30/23 Glucose 95 mg/dL (74-106) 03/30/23 09:16 03/30/23 TSH 1.56 uIU/mL (0.358-3.74) 05/11/17 07:58 05/11/17 COAG Pre-Assessment Diagnosis/Proposed Procedure Planned Operative Procedure(s): EGD Anesthesia History Anesthesia History - sagger filler: Anesthesia History - sagger filler Hx Hospitalization No 10/21/24 09:43 Any Problems With Anesthesia No 10/21/24 09:43 Cholinesterase deficiency No 10/21/24 09:43 You/Your Family Experience No 10/21/24 09:43 fever (hyperthermia) with Relationship Recent Exposure to Contagious No 10/23/24 07:56 Disease Does patient have nerve No 10/21/24 09:43 stimulator Patient instructed to have device shut off --Does patient have Pacemaker No 10/23/24 07:56 or ICD? When Was Last Pacemaker Check QUESTION #4 FULL TEXT: You/Your Family Experience fever (hyperthermia) with Anesthesia Last Oral Intake Last Oral intake: Last Oral Intake NPO since Meds taken in AM with sips of Yes 10/23/24 07:56 water? Meds patient instructed to metropolol take am of surgery Any additional information?: Yes Meds taken in AM with sips of water?: Yes PONV PONV - sagger filler: PONV - sagger filler Female Yes 10/21/24 09:43 HX of Motion Sickness Yes 10/21/24 09:43 HX of N/V After Surgery No 10/21/24 09:43 Non-Smoker Yes 10/21/24 09:43 Duration of Surgery greater No 10/21/24 09:43 than 60 minutes Number of Risk Factors 3 10/21/24 09:43 PONV Score Moderate Risk 10/21/24 09:43 Height & Weight Height & Weight: Anesthesia: Height & Weight Height 5 ft 1 in 10/23/24 07:56 Weight: 93 kg 10/23/24 07:56 Body Mass Index (BMI) 38.7 10/23/24 07:56 Respiratory Assessment Respiratory Assessment - sagger filler: Respiratory Tract Infection Hx - sagger filler Hx Respiratory Tract Infection No 10/21/24 09:43 Any additional information?: Yes Hx Respiratory Tract Infection: Yes (Patient has a chronic cough.) STOP Sleep Apnea STOP Sleep Apnea - sagger filler: STOP Sleep Apnea - sagger filler Hx Hypertension Yes: CONTROLLED ON MED 10/21/24 09:43 Hx Sleep Apnea Yes: NON-COMPLIANT 10/21/24 09:43 CPAP No 10/21/24 09:43 BIPAP No 10/21/24 09:43 Do you snore loudly (louder than talking or can be heard Do you often feel tired/ fatigued/ sleepy during daytime? Has anyone observed you stop breathing during sleep? STOP Results Positive 10/21/24 09:43 QUESTION #5 FULL TEXT : Do you snore loudly (louder than talking or can be heard through closed doors)? Tobacco Use History Tobacco Use History - sagger filler: Tobacco Use History - sagger filler Tobacco Use Smoking Status Never smoker 10/21/24 09:43 Hx Tobacco Use No 10/21/24 09:43 Years Smoking Packs Smoked per Day Smoking Cessation Date was within the last 15 years Hx Smoking Cessation Date Hx Smoking Cessation Counseling Hematologic Medial History Hematologic Hx - sagger filler: Hematologic Medical Hx - hog counter Hx of Blood Transfusion No 10/21/24 09:43 Hx of Transfusion in last 3 No 10/21/24 09:43 Months Date of Last Transfusion (if within last 3 months) Ever experience any problems No 10/21/24 09:43 with transfusion(s)? Specify any problems Hx of Preganancy in last 3 No 10/21/24 09:43 Months Nurse Filling Out Transfusion VCHRISTIN 10/21/24 09:43 & Questions: Date: 10/21/24 10/21/24 09:43 Time: 09:45 10/21/24 09:43 Patient unable to answer at this time (ie. confused, unrespo /Reproduction History /Reproductive History - sagger filler: /Reproductive Hx- sagger filler Hx Now No 10/21/24 09:43 Gestational Age (in weeks): EDC: Hx Hx Para Hx Section SAB No 10/21/24 09:43 PFSH Medical History Wears glasses History of Clostridium difficile infection Post-menopausal Cancer Diabetes History of renal disease Anemia High cholesterol Back pain Dietary restriction Difficulty swallowing History of IBS History of diverticulitis Non-smoker Chronic cough History of edema History of echocardiogram History of stress test Cardiology follow-up encounter History of trigger finger Osteopenia determined by x-ray Psoriatic arthritis Diabetes type 2, controlled Arthritis History of melanoma Sleep apnea GERD (gastroesophageal reflux disease) IBS (irritable bowel syndrome) Asthma Hyperlipemia Hypertension Home Medications ?Medication ?Instructions ?Recorded ?Last Taken ?Type indapamide 2.5 mg tablet 2.5 mg PO QAM #90 tabs 08/21/17 Unknown Rx apremilast 30 mg tablet (Otezla) 30 mg PO QAM AND QPM 04/04/21 Unknown History atorvastatin 20 mg tablet (Lipitor) 20 mg PO DAILY 04/04/21 Unknown History Held on 10/21/24. Instructions: RAN OUT OF THIS MED, pioglitazone 15 mg tablet 15 mg PO DAILY 04/04/21 Unknown History cholecalciferol (vitamin D3) 50 50 mcg PO DAILY 04/18/22 Unknown History mcg (2,000 unit) capsule cinnamon bark 500 mg capsule 500 mg PO DAILY 04/18/22 Unknown History mecobalamin (vitamin B12) 1,000 1,000 mcg PO DAILY 04/18/22 Unknown History mcg chewable tablet lisinopril 2.5 mg tablet 2.5 mg PO BID 01/10/24 Unknown History metoprolol tartrate 25 mg tablet 25 mg PO BID 01/10/24 10/23/24 07:00 History tizanidine 2 mg tablet 2 mg PO BID PRN muscle spasticity 01/10/24 Unknown History nystatin 100,000 unit/gram topical 1 applic topical BID #45 ea 04/29/24 Unknown Rx powder (Nystop) tramadol 50 mg tablet 50 mg PO QHS 04/29/24 Unknown History colesevelam 625 mg tablet (WelChol) 1,875 mg (3 x 625 mg) PO .before 08/13/24 Unknown Rx first meal 90 days #300 tabs omeprazole 40 mg capsule,delayed 40 mg PO BID 90 days #180 caps 08/13/24 Unknown Rx release glipizide 5 mg tablet, extended 10 mg PO BID 10/21/24 Unknown History release 24 hr ipratropium bromide 42 mcg (0.06 2 spray intranasal DAILY 10/21/24 10/23/24 History %) nasal spray Allergy/AdvReac Type Severity Reaction Status Date / Time latex Allergy Severe OTHER Verified 10/21/24 09:23 cat dander Allergy Mild itching Verified 08/13/24 13:49 mold Allergy Mild Other Verified 10/21/24 09:23 Seasonal Allergies: Uncoded Allergy Unknown Other Verified 10/21/24 09:23 (environmental) adhesive Allergy Rash Verified 10/21/24 09:23 amoxicillin (From Augmentin) Allergy Unknown Verified 10/21/24 09:23 clavulanic acid (From Allergy Unknown Verified 10/21/24 09:23 Augmentin) Corticosteroids Allergy NEEDS Verified 10/21/24 09:23 (Glucocorticoids) FOLLOW-UP Penicillins (PCN) Allergy Other Verified 10/21/24 09:23 Sulfa (Sulfonamide Allergy Hives Verified 10/21/24 09:23 Antibiotics) Family History Mother Diabetes Heart disease Hypertension Father Heart disease Cancer skin Grandfather Myocardial infarction 60s or 70s CVA (cerebral vascular accident) Surgical History Hx of foot surgery H/O shoulder surgery S/P hernia repair S/P cholecystectomy Status post left foot surgery hand and elbow surgery History of carpal tunnel release History of cataract H/O arthroscopic knee surgery History of appendectomy Social History household members: none housing: house number of children: 0 current occupational status: retired pets and animals: Yes pets and animals: cat(s) Smoking Status: Never smoker alcohol intake: never substance use type: does not use caffeine: No what type of physical activity do you participate in: none seatbelt use: always do you feel safe at home: No (someone coming into house when she not home) additional social history: Works seasonally at [employer] Review of Systems (Anesthesia) ROS Narrative System reviewed and no additional complaints, except as documented.
[2024-10-23] MEDS: Ipratropium/Albuterol Sulfate 3 ML AMPUL.NEB INHALATION (08:35)
[2024-10-23 08:45] LABS: Bedside Glucose 59 mg/dL (74-106)
--- NOTE | 2024-10-23 08:45 | EGD_PTH ---
PATIENT: LIV DEWEY LOC: EN U#:[id number] AGE/SX: 73/F ROOM: RE10/23/[address]: Dr. Sarmad Orr DO : 1950 BED: DIS: 10/23/2024 SPEC #: [id number] RECD: 10/23/24 10:29 STATUS: ARYA SILVERIO #: [id number] VIV: 10/23/24 08:[address]: Sarmad Orr DEPT: SURGICAL PATHOLOGY RECD BY: Pan Figueroa ENTERED: 10/23/24 11:26 SP TYPE: EGD BIOPSY OT DR: Cait Primary Care Phys Tissues: A - Duodenum, NOS B - Gastric mucous membrane Procedures: Immunohistochemical Stains Surgery Specimen Level IV HEADER OPERATION: EGD PRE-OP DIAGNOSIS: Epigastric pain, left upper quadrant pain, nausea, fatigue, gastrointestinal discomfort, diarrhea, delayed gastric emptying TISSUE SUBMITTED: A- Duodenal polyp biopsy, B- Gastric antrum biopsy MICROSCOPIC DIAGNOSIS A. Duodenal polyp, biopsy:Duodenal mucosa with no histopathologic abnormalityB. Gastric antrum, biopsy:Oxyntic mucosa with no dysplasia or other histopathologic abnormalityAn immunohistochemical stain for H. pylori organisms with appropriate controls is negative.Sanjay Sanders MD, 10/30/2024 MICROSCOPIC DESCRIPTION Slides are reviewed. These tests were developed and their performance characteristics determined by [facility]. They may not have been cleared or approved by the U.S. Food and Drug Administration. The FDA has determined that such clearance or approval is not necessary. The above immunohistochemical/dualISH markers are ordered and reviewed by the Pathologist. GROSS DESCRIPTION A. Received in fixative is one container labeled with the patient's name and designated Duodenal polyp biopsy. The specimen consists of one irregular fragment of light varela soft tissue that measures 0.4 x 0.3 x 0.2 cm. The specimen is totally submitted in one cassette. B. Received in fixative is one container labeled with the patient's name and designated Gastric antrum biopsy. The specimen consists of two irregular fragments of light varela soft tissue that in aggregate measure 0.7 x 0.4 x 0.2 cm. The specimen is totally submitted in one cassette. 10/23/2024 CPT:95929e8 ,32827, TC:4
--- NOTE | 2024-10-23 09:14 | PCM.POST.ANE ---
Anesthesia: Postop Eval I Current Vital Signs Temperature: 97.9 F Pulse Rate: 73 Blood Pressure: 120/73 Respiratory Rate: 18 Pulse Ox: 93 Assessment Airway patent: Yes Spontaneous unlabored respirations: Yes nausea: No Vomiting: No Anesthesia Complication: No Fluid Hydration Crystalloid volume administer (ml): 10 Total IV fluid infused: 10 Progress Note Anesthesia document: Postop Eval 1 completed: No
--- NOTE | 2024-10-23 09:18 | OP.EGD_ITS ---
Patient Name: Jacquelyn Garcia Procedure Date: 10/23/2024 8:31 AM Date of : 1950 Age: 73 Procedure: Upper GI endoscopy Indications: Abdominal pain in the right upper quadrant, Abdominal pain in the left lower quadrant, Functional Dyspepsia, Indigestion Providers: Sarmad Orr DO Referring MD: No Primary Care Physician Medicines: Monitored Anesthesia Care Patient Profile: This is a 73 year old female. Refer to note in patient chart for documentation of history and physical. Patient has symptoms of acute right upper quadrant abdominal pain and acute dyspepsia. Complications: No immediate complications. Procedure: Pre-Anesthesia Assessment: - Prior to the procedure, a History and Physical was performed, and patient medications and allergies were reviewed. The patient is competent. The risks and benefits of the procedure and the sedation options and risks were discussed with the patient. All questions were answered and informed consent was obtained. Patient identification and proposed procedure were verified by the physician in the pre-procedure area. Mental Status Examination: alert and oriented. Airway Examination: normal oropharyngeal airway and neck mobility. Respiratory Examination: clear to auscultation. CV Examination: normal. Prophylactic Antibiotics: The patient does not require prophylactic antibiotics. Prior Anticoagulants: The patient has taken no anticoagulant or antiplatelet agents except for NSAID medication. ASA Grade Assessment: II - A patient with mild systemic disease. After reviewing the risks and benefits, the patient was deemed in satisfactory condition to undergo the procedure. The anesthesia plan was to use monitored anesthesia care (MAC). Immediately prior to administration of medications, the patient was re-assessed for adequacy to receive sedatives. The heart rate, respiratory rate, oxygen saturations, blood pressure, adequacy of pulmonary ventilation, and response to care were monitored throughout the procedure. The physical status of the patient was re-assessed after the procedure. After obtaining informed consent, the endoscope was passed under direct vision. Throughout the procedure, the patient's blood pressure, pulse, and oxygen saturations were monitored continuously. The Endoscope was introduced through the mouth, and advanced to the third part of the duodenum. Small bowel enteroscopy was deemed necessary. The upper GI endoscopy was accomplished without difficulty. The patient tolerated the procedure well. Scope In: 9:02:43 AM Scope Out: 9:07:02 AM Total Procedure Duration Time 0 hours 4 minutes 19 seconds Findings: The examined esophagus was normal. A small hiatal hernia was present. Patchy mild inflammation characterized by congestion (edema), erosions and erythema was found in the gastric antrum. Biopsies were taken with a cold forceps for histology. Verification of patient identification for the specimen was done. Biopsies were taken with a cold forceps for Helicobacter pylori testing. Verification of patient identification for the specimen was done. Estimated blood loss was minimal. A single 7 mm sessile polyp with no bleeding was found in the duodenal bulb. The polyp was removed with a jumbo cold forceps. Resection and retrieval were complete. Impression: - Normal esophagus. - Small hiatal hernia. - Bile gastritis. Biopsied. - A single duodenal polyp. Resected and retrieved. Recommendation: - Await pathology results. - Repeat upper endoscopy in 1 year to check healing. - Patient has a contact number available for emergencies. The signs and symptoms of potential delayed complications were discussed with the patient. Return to normal activities tomorrow. Written discharge instructions were provided to the patient. - Resume previous diet. - Continue present medications. - Await pathology results. - Repeat upper endoscopy for surveillance. Procedure Code(s): --- Professional --- 08755, Small intestinal endoscopy, enteroscopy beyond second portion of duodenum, not including ileum; with biopsy, single or multiple CPT copyright 2021 [employer]. All rights reserved. The codes documented in this report are preliminary and upon steel floor pan placing supervisor review may be revised to meet current compliance requirements. Sarmad Orr DO 10/23/2024 9:18:38 AM This report has been signed electronically. Number of Addenda: 0 Note Initiated On: 10/23/2024 8:31 AM
--- NOTE | 2024-10-23 09:19 | OP.CCLET_ITS ---
10/23/2024 No Primary Care Physician Re : Upper GI endoscopy procedure for Jacquelyn Garcia Dear Care Physician This procedure was performed on October. My impressions and recommendations are as follows: Impressions : - Normal esophagus. - Small hiatal hernia. - Bile gastritis. Biopsied. - A single duodenal polyp. Resected and retrieved. Recommendations : - Await pathology results. - Repeat upper endoscopy in 1 year to check healing. - Patient has a contact number available for emergencies. The signs and symptoms of potential delayed complications were discussed with the patient. Return to normal activities tomorrow. Written discharge instructions were provided to the patient. - Resume previous diet. - Continue present medications. - Await pathology results. - Repeat upper endoscopy for surveillance. My findings are described in the full procedure note, which is enclosed. If I can be of further assistance, please feel free to contact me at . Sincerely, Sarmad Orr, 10/23/2024 9:18:38 AM This report has been signed electronically.
--- NOTE | 2024-10-23 10:30 | POSTOPAN2_ITS ---
Anesthesia Postop Eval I Sum Postop Eval Completion status Anesthesia document: Postop Eval 1 completed: No Anesthesia Postop Eval I Summary Anesthesia Postop Eval I Summary: Anesthesia Postop Eval I: Assessment Summary Airway patent Yes 10/23/24 09:14 DIRECTOR SALES [employer] MARKETING.CSIR Spontaneous unlabored Yes 10/23/24 09:14 DIRECTOR SALES [employer] MARKETING.CSIR respirations Mental status nausea No 10/23/24 09:14 DIRECTOR SALES [employer] MARKETING.CSIR Vomiting No 10/23/24 09:14 DIRECTOR SALES [employer] MARKETING.CSIR Anesthesia Postop Eval I: Fluid Summary Crystalloid volume administer 10 10/23/24 09:14 DIRECTOR SALES [employer] MARKETING.CSIR (ml) Colloids volume administered ( ml) Blood Product volume administered (ml) Total IV fluid infused 10 10/23/24 09:14 DIRECTOR SALES [employer] MARKETING.CSIR Anesthesia Postop Eval I: Summary Notes Anesthesia Complication No 10/23/24 09:14 DIRECTOR SALES [employer] MARKETING.CSIR Anesthesia Complication Comment: Post-operative progress note Anesthesia: Postop Eval II Evaluation Mental status: Awake Pain Level: 0 nausea: No Vomiting: No
--- NOTE | 2024-10-23 10:30 | PCM.POSTANE2 ---
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 Spontaneous unlabored Yes 10/23/24 09:14 STEEL RULE INSPECTOR.CSIR respirations Mental status nausea No 10/23/24 09:14 STEEL RULE INSPECTOR.CSIR Vomiting No 10/23/24 09:14 STEEL RULE INSPECTOR.CSIR Anesthesia Postop Eval I: Fluid Summary Crystalloid volume administer 10 10/23/24 09:14 STEEL RULE INSPECTOR.CSIR (ml) Colloids volume administered ( ml) Blood Product volume administered (ml) Total IV fluid infused 10 10/23/24 09:14 STEEL RULE INSPECTOR.CSIR Anesthesia Postop Eval I: Summary Notes Anesthesia Complication No 10/23/24 09:14 STEEL RULE INSPECTOR.CSIR Anesthesia Complication Comment: Post-operative progress note Anesthesia: Postop Eval II Evaluation Mental status: Awake Pain Level: 0 nausea: No Vomiting: No
== END 2024-10-23 10:02 | disposition home or self-care (01) ==
LOC: EN 07:39 → AC 07:41
PROVIDERS: Visit Provider Internal Medicine Gastroenterology
PROC: 0DJ08ZZ Inspection of Upper Intestinal Tract, Via Natural or Artificial Opening Endoscopic (ICD-10-PCS; CPT 43235; principal; 2024-10-23 08:40)
DX: R10.13 Epigastric pain (principal); E11.9 Type 2 diabetes mellitus without complications; K29.70 Gastritis, unspecified, without bleeding; E78.00 Pure hypercholesterolemia, unspecified; K31.7 Polyp of stomach and duodenum; R15.9 Full incontinence of feces; R53.83 Other fatigue; K58.0 Irritable bowel syndrome with diarrhea; Z79.84 Long term (current) use of oral hypoglycemic drugs; R14.0 Abdominal distension (gaseous); I10 Essential (primary) hypertension; Z79.899 Other long term (current) drug therapy; K21.9 Gastro-esophageal reflux disease without esophagitis; Z90.49 Acquired absence of other specified parts of digestive tract; R10.12 Left upper quadrant pain; R11.0 Nausea; K44.9 Diaphragmatic hernia without obstruction or gangrene
CPT/HCPCS: 43239; 82962; 88305; 88342; A4216; J2405

== ENCOUNTER → 2024-11-21 | Outpatient (CLI) | payer MEDICARE, OTHER, SELFPAY ==
--- NOTE | 2024-11-21 09:22 | US_ITS ---
PROCEDURE: ELASTOGRAPHY PARENCHYMA/ORGAN, 11/21/2024 REASON FOR EXAM: FATTY LIVER COMPARISON: 10/13/2024 TECHNIQUE: Elastography was performed for non-invasive assessment of liver tissue stiffness utilizing a [facility] S-shear wave imaging unit. FINDINGS: Number of measurements: 15 measurements across 3 regions, 5 measurements per region. US probe: CA1-7A. EQI median: 7.2 kPa EQI median velocity: 1.53 m/s IQR/Med: 18.8-24.3% (kPa) and 9.8-12.3% (m/s). If the IQR/Med is IQR/median >30% (for kPa) or >15% in m/s, the variance in the measurements is a large and the accuracy of the measurement may be in question. US/Elastography Parenchyma/Organ IMPRESSION: 1. Liver stiffness is 7.2 kPa. Per the below 2020 SRU criteria, this rules out compensated advanced chronic liver disease in the absence of other known clinical signs. If there are known clinical signs, furth er testing may be needed for confirmation. 2. Additional description as above. Assessment is per the Update to the SRU Liver Elastography Consensus Statement (2020) Note that the above assessment of liver fibrosis is vendor-neutral and intended for use in fibrosis related to viral etiologies and non-alcoholic fatty-liver disease (NAFLD); in causes other than viral hepat itis and NAFLD, the cutoff values are currently not well established. In some patients with NAFLD, the cutoff values for cACLD may be lower (7-9 kPa). Note also that in the setting of elevated LFTs, nonfasting or vascular congestion, the stage of lifer fibrosis may be overestimated. Previous SRU reference values: <1.37 m/s (5.7kPa): No to mild fibrosis 1.37 m/s - 2.2 m/s: Moderate to severe fibrosis >2.2 m/s (15kPa): Significant fibrosis / cirrhosis Reading Location: [id number]
== END | disposition home or self-care (01) ==
LOC: US 09:22
PROVIDERS: Referring Provider Nurse Practitioner Acute Care; Visit Provider Nurse Practitioner Acute Care
DX: K76.0 Fatty (change of) liver, not elsewhere classified (principal)
CPT/HCPCS: 76981

== ENCOUNTER → 2025-01-26 | Outpatient (CLI) | payer MEDICARE, OTHER, SELFPAY ==
--- NOTE | 2025-01-26 12:55 | MRI_ITS ---
PROCEDURE: BRAIN WITHOUT CONTRAST 01/26/2025 REASON FOR EXAM: STROKE LIKE SYMPTOMS TECHNIQUE: BRAIN WITHOUT CONTRAST Multiplanar and multisequence images were obtained. COMPARISON: None. FINDINGS: Multiple T2 hyperintense foci in the periventricular and subcortical white matter suggestive of moderate chronic ischemic white matter disease. Scattered chronic ischemic foci in the basal ganglia, thalami and infratentorial white matter. The ventricles and extra-axial spaces are normal for the patient's age. No other abnormality is identified in the basal ganglia and thalami. No other abnormality is identified in the brainstem. No other abnormality is identified in the cerebellum. There is no midline shift or brain herniation. There is no demonstrated extra-axial, intraparenchymal, or intraventricular hemorrhage. There are no abnormal intra-or extra-axial fluid collections. There are no areas of restricted diffusion to suggest acute ischemia. The cerebellopontine angles, internal auditory canals and the cisternal portions of the accoustico - facial nerves are unremarkable. Unremarkable exam of the skull. Normal soft tissue structures. The visualized paranasal sinuses and mastoid air cells are clear. The visualized portions of the orbits are unremarkable. MRI/Brain without Contrast IMPRESSION: Multiple T2 hyperintense foci in the periventricular and subcortical white abena er suggestive of moderate chronic ischemic white matter disease. Scattered chronic ischemic foci in the basal ganglia, thalami and infratentoria l white matter. Reading Location: [place] [id number]
== END | disposition home or self-care (01) ==
LOC: OPMRI 12:42
PROVIDERS: PCP Internal Medicine; Referring Provider Internal Medicine; Visit Provider Internal Medicine
DX: R29.90 Unspecified symptoms and signs involving the nervous system (principal)
CPT/HCPCS: 70551

== ENCOUNTER → 2025-01-27 | Outpatient (CLI) | payer MEDICARE, OTHER, SELFPAY ==
--- NOTE | 2025-01-27 11:55 | CT_ITS ---
PROCEDURE: CTA HEAD AND NECK W/ CONTRAST 01/27/2025 REASON FOR EXAM: STROKE LIKE SYMPTOMS TECHNIQUE: CTA HEAD AND NECK W/ CONTRAST Multiplanar Sagittal and Coronal images were obtained. CONTRAST: Isovue 370 VOLUME: 100 mL One or more dose reduction techniques were used (e.g., Automated exposure control, adjustment of the mA and/or kV according to patient size, use of iterative reconstruction technique). RADIATION DOSE SUMMARY: CTDlvol: 27 mGy DLP: 1524.85 mGycm COMPARISON: None FINDINGS: Aortic Arch: Normal size and branching pattern. Mild atherosclerotic plaque. Brachiocephalic and Subclavians: Mild atherosclerotic plaque without significant stenosis. RIGHT Carotid: Right CCA: Unremarkable. Right ICA: Mild calcified and soft plaque. Maximum stenosis (NASCET): <50 % Right ECA: Unremarkable. LEFT Carotid: Left CCA: Unremarkable. Left ICA: Mild calcified and soft plaque. Maximum stenosis (NASCET): <50 % Left ECA: Unremarkable. Vertebrals: Codominant. Arise from the subclavians. Both vertebrals form the basilar. RIGHT Vertebral: Unremarkable. LEFT Vertebral: Unremarkable. Anatomy: Burns of Lim anatomy is normal.. Atherosclerotic plaque formation of the cavernous portions of the internal carotid arteries bilaterally. Aneurysm or avm: No intracranial aneurysms or large vascular malformations are identified. Anterior cerebral arteries: Unremarkable: Middle cerebral arteries: Unremarkable. Basilar artery: Unremarkable. Posterior cerebral arteries: Unremarkable. Other major branches of the posterior circulation: Unremarkable. Major venous structures: Unremarkable. CT/CTA Head AND Neck W/ Contrast IMPRESSION: Mild degree of calcific plaques at the origin of the right and left internal ca rotid arteries causing less than 50% stenosis. Reading Location: [id number]
[2025-01-27 12:07] VITALS: BP 197/61; PULSE 63; RESP 16; O2SAT 95; BMI 37.8
[2025-01-27] MEDS: 0.9% Normal Saline (500mL Bag) 500 ML IV (12:16)
== END | disposition home or self-care (01) ==
LOC: CT 11:53
PROVIDERS: PCP Internal Medicine; Referring Provider Internal Medicine; Visit Provider Internal Medicine
DX: R29.90 Unspecified symptoms and signs involving the nervous system (principal)
CPT/HCPCS: 70496; 70498; Q9967

== ENCOUNTER → 2025-05-06 | Outpatient (CLI) | payer MEDICARE, OTHER, SELFPAY ==
--- NOTE | 2025-05-06 10:00 | BI_ITS ---
EXAM: SCRN MAMM (CAD)W/GUY BILAT DATE: 05/06/2025 CLINICAL HISTORY: F, Age 74 y/o , SCREEN FOR BREAST CANCER Routine screening TECHNIQUE: Procedure Code: [id number] Modality: MG Procedure: SCRN MAMM (CAD)W/GUY BILAT COMPARISON: Prior exam(s) dated 05/05/2024 FINDINGS: TISSUE DENSITY: The breasts are heterogeneously dense, which may obscure small masses. Bilateral Breast Mammographic Findings: No significant masses, calcifications or other abnormalities are identified. Stable scattered punctate and secretory type calcifications. No interval change BI/SCRN MAMM (CAD)W/GUY BILAT IMPRESSION: Stable screening mammogram, no suspicious findings OVERALL FINAL ASSESSMENT BI-RADS 2: BENIGN RECOMMENDATION: Routine annual follow-up in 1 Year Additional Recommendation none A letter with findings and recommendations will be mailed to the patient. Reading Location: [id number]
== END | disposition home or self-care (01) ==
LOC: OPBI 10:10
PROVIDERS: Referring Provider Obstetrics & Gynecology; Visit Provider Obstetrics & Gynecology
DX: Z12.31 Encounter for screening mammogram for malignant neoplasm of breast (principal)
CPT/HCPCS: 77063; 77067